=== PATIENT | male | born 1970 | race Caucasian/White ===

== ENCOUNTER 2021-05-09 09:25 | Outpatient (REF) | payer OTHER, SELFPAY ==
[2021-05-09 11:22] LABS: MANUAL DIFF FLAG NO
[2021-05-09 11:58] LABS: Basophils Percent Auto 0.7 % (0-2); Eosinophils Absolute Auto 0.2 X10*3/uL (0.0-0.4); Eosinophils Percent Auto 3.7 % (0-4); Hemoglobin 13.9 g/dl (14.0-18.0); Imm Gran Abs Auto 0.01 X10*3/uL (0.00-0.03); Imm Gran Pct Auto 0.2 % (0.0-0.4); Lymphocytes Absolute Auto 1.1 X10*3/uL (1.2-4.9); Lymphocytes Percent Auto 27.8 % (20-40); Mean Corpuscular HGB Conc 33.9 g/dl (31.0-36.0); Mean Corpuscular Hemoglobin 30.4 pg (27.0-33.0); Mean Corpuscular Volume 89.7 fL (80.0-98.0); Mean Platelet Volume 10.3 fL (9.4-12.4); Monocytes Absolute Auto 0.5 X10*3/uL (0.1-1.2); Monocytes Percent Auto 11.7 % (2-11); Neutrophils Absolute Auto 2.3 x10*3/uL (2.0-8.3); Neutrophils Percent Auto 55.9 % (45-73); Platelet Count 206 X10*3/uL (160-400); Red Blood Count 4.57 X10*6/uL (4.60-5.80); Red Cell Distribution Width 12.6 % (11.0-16.0); White Blood Count 4.1 X10*3/uL (4.8-10.8)
[2021-05-09 12:08] LABS: Anion Gap 15 (12-20); Blood Urea Nitrogen 15 mg/dL (9-16); Calcium 9.3 mg/dL (8.4-10.2); Carbon Dioxide 22 mmol/L (22-29); Chloride 106 mmol/L (96-108); Cholesterol 142 mg/dL; Estimated Glomerular Filt Rate > 60; Glucose Fasting 110 mg/dL (60-99); HDL Cholesterol 42 mg/dL; LDL Cholesterol Calculated 86 mg/dl; Potassium 3.8 mmol/L (3.3-5.1); Sodium 139 mmol/L (135-145); Triglycerides 71 mg/dL
[2021-05-09 12:10] LABS: Appearance Urine CLEAR; Color Urine DK YELLOW; Glucose Urine UA NEG (NEG); Leukocyte Esterase Urine NEG (NEG); Nitrite Urine NEG (NEG); Specific Gravity - Urine >= 1.030 (1.005-1.025); Urine Blood TRACE (NEG); Urine Ketones NEG (NEG); Urine Protein NEG (NEG-TRACE)
[2021-05-09 12:34] LABS: Prostate Specific Antigen 0.44 ng/mL (<0.05-4.0); Vitamin D 25-OH Total 37.7 ng/mL (>30)
[2021-05-09 12:38] LABS: Mucus Urine 1+ /LPF; RBC Urine 0-2 /HPF (0); WBC Urine 0 /HPF (0-4)
== END 2021-05-09 09:26 | disposition home or self-care (01) ==
LOC: HO.HMGCLDS 09:25
PROVIDERS: Visit Provider Internal Medicine
DX: Z12.5 Encounter for screening for malignant neoplasm of prostate (principal); K58.0 Irritable bowel syndrome with diarrhea; I65.23 Occlusion and stenosis of bilateral carotid arteries; D12.6 Benign neoplasm of colon, unspecified; E78.5 Hyperlipidemia, unspecified; F41.9 Anxiety disorder, unspecified; N52.9 Male erectile dysfunction, unspecified
CPT/HCPCS: 36415; 80048; 80061; 81001; 82306; 84153; 84443; 85025

== ENCOUNTER 2021-09-07 15:22 | Outpatient (REF) | payer OTHER, SELFPAY ==
--- NOTE | ~2021-09-07 | US_ITS ---
EXAMINATION: US SCROTUM CLINICAL INFORMATION: Right testicle swelling. COMPARISON: None TECHNIQUE: A sonogram of the scrotum was performed assessing alcala-scale appearance and color Doppler flow. Spectral Doppler analysis of the arterial and venous flow were performed in the testes bilaterally. FINDINGS: RIGHT: Right testicle measures 3.74 x 2.24 x 3.48 cm, volume 15.3 mL. There is a small anechoic cyst measuring 0.23 x 0.15 x 0.30 cm and 0.5 x 0.21 x 0.7 cm. There are dilated rete testes. Spectral Doppler analysis of the arterial and venous flow is normal in the right testis. Right epididymal head is normal in size. There is a moderate size hydrocele with echogenic debris within. Also visualized is a small right varicocele. There is a large cystic area within the scrotal sac measuring 3.6 x 2.4 x 3.6 cm question spermatocele. Right epididymal Doppler flow is normal. LEFT: Left testicle measures 3.71 x 2.27 x 3.44 cm, volume 15.2 mL. No focal testicular parenchymal lesions are visualized. Spectral Doppler analysis of the arterial and venous flow is normal in the left testis. Left epididymal head is heterogeneous. There is a moderate hydrocele with echogenic debris. There is a moderate-sized varicocele visualized as well. Left epididymal Doppler flow is normal. US/US scrotum IMPRESSION: Bilateral hydroceles with echogenic debris. There are bilateral varicoceles slightly larger on the left. In addition there is a right spermatocele measuring 3.6 cm. The right epididymis is normal. The left epididymis is heterogeneous. The testes are unremarkable.
== END 2021-09-07 15:23 | disposition home or self-care (01) ==
LOC: HO.HMGCX 15:22
PROVIDERS: PCP Internal Medicine; Visit Provider Internal Medicine
DX: N50.89 Other specified disorders of the male genital organs (principal); N52.9 Male erectile dysfunction, unspecified
CPT/HCPCS: 76870

== ENCOUNTER 2022-06-24 13:31 | Outpatient (REF) | payer OTHER, SELFPAY ==
[2022-06-24 15:19] LABS: MANUAL DIFF FLAG NO
[2022-06-24 15:21] LABS: Basophils Percent Auto 0.5 % (0-2); Eosinophils Absolute Auto 0.3 X10*3/uL (0.0-0.4); Eosinophils Percent Auto 3.8 % (0-4); Hematocrit 43.4 % (42.0-52.0); Hemoglobin 14.5 g/dl (14.0-18.0); Imm Gran Abs Auto 0.03 X10*3/uL (0.00-0.03); Imm Gran Pct Auto 0.4 % (0.0-0.4); Lymphocytes Absolute Auto 1.3 X10*3/uL (1.2-4.9); Lymphocytes Percent Auto 17.2 % (20-40); Mean Corpuscular HGB Conc 33.4 g/dl (31.0-36.0); Mean Corpuscular Hemoglobin 29.9 pg (27.0-33.0); Mean Corpuscular Volume 89.5 fL (80.0-98.0); Monocytes Absolute Auto 0.6 X10*3/uL (0.1-1.2); Monocytes Percent Auto 8.7 % (2-11); Neutrophils Absolute Auto 5.1 x10*3/uL (2.0-8.3); Neutrophils Percent Auto 69.4 % (45-73); Platelet Count 237 X10*3/uL (160-400); Red Blood Count 4.85 X10*6/uL (4.60-5.80); White Blood Count 7.4 X10*3/uL (4.8-10.8)
[2022-06-24 15:24] LABS: Appearance Urine Clear; Color Urine Dark Yellow; Glucose Urine UA Negative (Negative); Leukocyte Esterase Urine Negative (Negative); Nitrite Urine Negative (Negative); Specific Gravity - Urine >= 1.030 (1.005-1.025); Urine Blood Negative (Negative); Urine Ketones Negative (Negative); Urine Protein Negative (Neg-Trace)
[2022-06-24 15:29] LABS: Bacteria Urine None Seen (None Seen); Hyaline Casts Urine 0-2 /LPF (0-2); RBC Urine 0-2 /HPF (0-2); Squamous Epithelial Cell Urine 0-2 /HPF (0-2); WBC Urine 0-5 /HPF (0-5)
[2022-06-24 15:48] LABS: Alanine Aminotransferase 19 U/L (0-40); Albumin Level 4.3 g/dL (3.5-5.0); Alkaline Phosphatase 69 U/L (39-117); Anion Gap 13 (12-20); Aspartate Amino Transferase 16 U/L (5-37); Bilirubin Total 0.7 mg/dL (0.0-1.0); Blood Urea Nitrogen 16 mg/dL (9-16); Calcium 9.4 mg/dL (8.4-10.2); Carbon Dioxide 25 mmol/L (22-29); Chloride 104 mmol/L (96-108); Cholesterol 147 mg/dL; Estimated Glomerular Filt Rate > 60; Glucose Fasting 90 mg/dL (60-99); HDL Cholesterol 43 mg/dL; LDL Cholesterol Calculated 89 mg/dl; Potassium 4.2 mmol/L (3.3-5.1); Sodium 138 mmol/L (135-145); Total Protein 7.1 g/dL (6.5-8.0); Triglycerides 79 mg/dL
[2022-06-24 16:18] LABS: Thyroid Stimulating Hormone 1.08 uIU/mL (0.32-4.0)
== END 2022-06-24 13:32 | disposition home or self-care (01) ==
LOC: HO.HMGCLDS 13:31
PROVIDERS: PCP Internal Medicine; Visit Provider Internal Medicine
DX: F41.9 Anxiety disorder, unspecified (principal); I65.23 Occlusion and stenosis of bilateral carotid arteries; E78.5 Hyperlipidemia, unspecified; K58.0 Irritable bowel syndrome with diarrhea; N52.9 Male erectile dysfunction, unspecified
CPT/HCPCS: 36415; 80053; 80061; 81001; 84443; 85025

== ENCOUNTER 2023-07-27 08:01 | Outpatient (REF) | payer OTHER, SELFPAY ==
[2023-07-27 11:09] LABS: MANUAL DIFF FLAG NO
[2023-07-27 11:53] LABS: Prostate Specific Antigen 0.45 ng/mL (<0.05-4.0)
[2023-07-27 12:04] LABS: Alanine Aminotransferase 24 U/L (0-40); Alkaline Phosphatase 54 U/L (39-117); Anion Gap 11 (12-20); Aspartate Amino Transferase 18 U/L (5-37); Bilirubin Total 0.4 mg/dL (0.0-1.0); Blood Urea Nitrogen 17 mg/dL (9-16); Calcium 9.2 mg/dL (8.4-10.2); Carbon Dioxide 26 mmol/L (22-29); Chloride 107 mmol/L (96-108); Cholesterol 149 mg/dL (<200); Estimated Glomerular Filt Rate > 60; Glucose Fasting 109 mg/dL (60-99); HDL Cholesterol 49 mg/dL (>40); LDL Cholesterol Calculated 90 mg/dL (<100); Potassium 4.1 mmol/L (3.3-5.1); Sodium 140 mmol/L (135-145); Thyroid Stimulating Hormone 1.32 uIU/mL (0.32-4.0); Total Protein 7.1 g/dL (6.5-8.0); Triglycerides 50 mg/dL (<150)
[2023-07-27 12:13] LABS: Basophils Absolute Auto 0.1 X10*3/uL (0.0-0.2); Basophils Percent Auto 1.3 % (0-2); Eosinophils Absolute Auto 0.4 X10*3/uL (0.0-0.4); Eosinophils Percent Auto 8.5 % (0-4); Hematocrit 42.6 % (42.0-52.0); Hemoglobin 14.3 g/dl (14.0-18.0); Imm Gran Abs Auto 0.02 X10*3/uL (0.00-0.03); Imm Gran Pct Auto 0.4 % (0.0-0.4); Lymphocytes Percent Auto 21.1 % (20-40); Mean Corpuscular HGB Conc 33.6 g/dl (31.0-36.0); Mean Corpuscular Hemoglobin 30.2 pg (27.0-33.0); Mean Corpuscular Volume 90.1 fL (80.0-98.0); Mean Platelet Volume 10.4 fL (9.4-12.4); Monocytes Absolute Auto 0.5 X10*3/uL (0.1-1.2); Monocytes Percent Auto 11.5 % (2-11); Neutrophils Absolute Auto 2.7 x10*3/uL (2.0-8.3); Neutrophils Percent Auto 57.2 % (45-73); Platelet Count 215 X10*3/uL (160-400); Red Blood Count 4.73 X10*6/uL (4.60-5.80); Red Cell Distribution Width 11.9 % (11.0-16.0); White Blood Count 4.7 X10*3/uL (4.8-10.8)
== END 2023-07-27 08:02 | disposition home or self-care (01) ==
LOC: HO.HMGCLDS 08:01
PROVIDERS: PCP Internal Medicine; Visit Provider Internal Medicine
DX: Z00.00 Encounter for general adult medical examination without abnormal findings (principal); Z12.5 Encounter for screening for malignant neoplasm of prostate; E78.5 Hyperlipidemia, unspecified; K58.0 Irritable bowel syndrome with diarrhea
CPT/HCPCS: 36415; 80053; 80061; 84153; 84443; 85025

== ENCOUNTER 2024-07-08 07:07 | Outpatient (REF) | payer OTHER, SELFPAY ==
[2024-07-08 10:15] LABS: MANUAL DIFF FLAG NO
[2024-07-08 10:19] LABS: Basophils Absolute Auto 0.1 X10*3/uL (0.0-0.2); Basophils Percent Auto 1.2 % (0-2); Eosinophils Absolute Auto 0.3 X10*3/uL (0.0-0.4); Eosinophils Percent Auto 7.4 % (0-4); Hematocrit 41.2 % (42.0-52.0); Hemoglobin 13.7 g/dl (14.0-18.0); Imm Gran Abs Auto 0.01 X10*3/uL (0.00-0.03); Imm Gran Pct Auto 0.2 % (0.0-0.4); Lymphocytes Percent Auto 23.5 % (20-40); Mean Corpuscular HGB Conc 33.3 g/dl (31.0-36.0); Mean Corpuscular Hemoglobin 29.7 pg (27.0-33.0); Mean Corpuscular Volume 89.4 fL (80.0-98.0); Mean Platelet Volume 10.5 fL (9.4-12.4); Monocytes Absolute Auto 0.5 X10*3/uL (0.1-1.2); Monocytes Percent Auto 12.9 % (2-11); Neutrophils Absolute Auto 2.2 x10*3/uL (2.0-8.3); Neutrophils Percent Auto 54.8 % (45-73); Platelet Count 219 X10*3/uL (160-400); Red Blood Count 4.61 X10*6/uL (4.60-5.80); Red Cell Distribution Width 11.9 % (11.0-16.0)
[2024-07-08 10:49] LABS: Alanine Aminotransferase 26 U/L (0-40); Albumin Level 4.1 g/dL (3.5-5.0); Alkaline Phosphatase 53 U/L (39-117); Anion Gap 9 (12-20); Aspartate Amino Transferase 22 U/L (5-37); Bilirubin Total 0.5 mg/dL (0.0-1.0); Blood Urea Nitrogen 16 mg/dL (9-16); Calcium 8.9 mg/dL (8.4-10.2); Carbon Dioxide 25 mmol/L (22-29); Chloride 109 mmol/L (96-108); Cholesterol 125 mg/dL (<200); Estimated Glomerular Filt Rate > 60; Glucose Fasting 106 mg/dL (60-99); HDL Cholesterol 38 mg/dL (>40); LDL Cholesterol Calculated 73 mg/dL (<100); Potassium 4.1 mmol/L (3.3-5.1); Sodium 139 mmol/L (135-145); Total Protein 7.3 g/dL (6.5-8.0); Triglycerides 70 mg/dL (<150)
[2024-07-08 11:13] LABS: Thyroid Stimulating Hormone 1.65 uIU/mL (0.32-4.0); Vitamin D 25-OH Total 50.8 ng/mL (>30)
[2024-07-08 11:23] LABS: PSA,Total (Free>4and<10) 0.39 ng/mL (0.00-4.00)
== END 2024-07-08 07:08 | disposition home or self-care (01) ==
LOC: HO.HMGCLDS 07:07
PROVIDERS: PCP Internal Medicine; Visit Provider Internal Medicine
DX: E78.5 Hyperlipidemia, unspecified (principal); I65.23 Occlusion and stenosis of bilateral carotid arteries; K58.0 Irritable bowel syndrome with diarrhea; N52.9 Male erectile dysfunction, unspecified; F41.9 Anxiety disorder, unspecified; Z12.5 Encounter for screening for malignant neoplasm of prostate
CPT/HCPCS: 36415; 80053; 80061; 82306; 84153; 84443; 85025

== ENCOUNTER 2024-07-23 15:31 | Outpatient (AMB) | payer OTHER, SELFPAY ==
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
[2024-07-23 15:44] VITALS: BP 120/76; PULSE 74; TEMP 36.3; O2SAT 97; BMI 29.9
--- OUTSIDE RECORDS SUMMARY | 2024-07-23 16:21 | XMS_ITS | Patient Health Record ---
Author Organization Fabián Moncada DO, FAC Address [address] [place] [phone] Care Team Providers Care Negotiator Name Role Phone Fabián Moncada Primary Care Provider [phone] ALLERGIES No Known Allergies RESULTS Component Value Reference Range Notes Complete Blood Count Auto Di ff Reviewed date:07/27/2023 12:54:58 PM Interpretation:Abnormal Performing Lab:[facility], [address] [place] [phone] Notes/Report: White Blood Count 4.7 4.8-10.8 X10*3/uL Red Blood Count 4.73 4.60-5.80 X10*6/uL Hemoglobin 14.3 14.0-18.0 g/dl Hematocrit 42.6 42.0-52.0 % Mean Corpuscular Volume 90.1 80.0-98.0 fL Mean Corpuscular Hemoglobin 30.2 27.0-33.0 pg Mean Corpuscular HGB Conc 33.6 31.0-36.0 g/dl Red Cell Distribution Width 11.9 11.0-16.0 % Platelet Count 215 160-400 X10*3/uL Mean Platelet Volume 10.4 9.4-12.4 fL Neutrophils Percent Auto 57.2 45-73 % Imm Gran Pct Auto 0.4 0.0-0.4 % Lymphocytes Percent Auto 21.1 20-40 % Monocytes Percent Auto 11.5 2-11 % Eosinophils Percent Auto 8.5 0-4 % Basophils Percent Auto 1.3 0-2 % NRBC Pct Auto 0.0 0.0-0.2 /100WBC Neutrophils Absolute Auto 2.7 2.0-8.3 x10*3/u L Imm Gran Abs Auto 0.02 0.00-0.03 X10*3/uL Lymphocytes Absolute Auto 1.0 1.2-4.9 X10*3/u L Monocytes Absolute Auto 0.5 0.1-1.2 X10*3/uL Eosinophils Absolute Auto 0.4 0.0-0.4 X10*3/u L Basophils Absolute Auto 0.1 0.0-0.2 X10*3/uL NRBC Abs Auto 0.000 0.0-0.012 X10*3/uL Comprehensive [place]. Panel Fa Reviewed date:07/27/2023 12:54:35 PM Interpretation:Abnormal Performing Lab:[facility], [address] [place] [phone] Notes/Report: Sodium 140 135-145 mmol/L Potassium 4.1 3.3-5.1 mmol/L Chloride 107 96-108 mmol/L Carbon Dioxide 26 22-29 mmol/L Anion Gap 11 12-20 Blood Urea Nitrogen 17 9-16 mg/dL Creatinine 0.88 0.5-1.4 mg/dL Estimated Glomerular Filt Rate > 60 NOTE: For -[place] individuals, multiply the result by 1.210. Chronic Kidney Disease: Estimated GFR < 60 mL/min/1.73m2 Severe Kidney Disease: Estimated GFR < 15 mL/min/1.73m2 Glucose Fasting 109 60-99 mg/dL A fasting glucose from 100-125 mg/dl is considered impaired (pre-diabetes). Calcium 9.2 8.4-10.2 mg/dL Bilirubin Total 0.4 0.0-1.0 mg/dL Aspartate Amino Transferase 18 5-37 U/L Alanine Aminotransferase 24 0-40 U/L Total Protein 7.1 6.5-8.0 g/dL Albumin Level 4.0 3.5-5.0 g/dL Alkaline Phosphatase 54 39-117 U/L Lipid Panel Reviewed date:07/27/2023 12:54:35 PM Interpretation:Normal Performing Lab:[facility], [address] [place] [phone] Notes/Report: Triglycerides 50 <150 mg/dL Desirable Triglyceride: less than 150 mg/dL Borderline High Triglyceride 150-199 mg/dL High Triglyceride: 200-499 mg/dL Very High Triglyceride: greater than or equal to 5OO mg/dL Cholesterol 149 <200 mg/dL Desirable Cholesterol: less than 200 mg/dL Borderline High Cholesterol: 200-239 mg/dL High Cholesterol: greater than 239 mg/dL LDL Cholesterol Calculated 90 <100 mg/dL Desirable LDL: less than 100 mg/dL Near Optimal/Above Optimal LDL: 110-129 mg/dL Borderline High LDL: 130-159 mg/dL High LDL: 160-189 mg/dL Very High LDL: greater than or equal to 190 mg/dL HDL Cholesterol 49 >40 mg/dL Desirable HDL: greater than 40 mg/dL Note: This HDL assay may give artificially low results in patients with liver disease. Prostate Specific Antigen Reviewed date:07/27/2023 12:54:35 PM Interpretation:Normal Performing Lab:[facility], [address] [place] [phone] Notes/Report: Prostate Specific Antigen 0.45 <0.05-4.0 ng/mL PSA methodology: [employer] i Chemiluminescent Microparticle Immunoassay (CMIA) Thyroid Stimulating Hormone Reviewed date:07/27/2023 12:54:35 PM Interpretation:Normal Performing Lab:[facility], [address] [place] [phone] Notes/Report: Thyroid Stimulating Hormone 1.32 0.32-4.0 uIU/ mL TSH 3rd Generation ([employer]) REASON FOR REFERRAL No Information MEDICATIONS Medication SIG (Take, Route, Frequency, Duration) Notes Start Date End Date Status Aspirin Adult Low Dose 81 MG 1 tablet Orally Once a day Active Sildenafil Citrate 100 MG 1 tablet as ne eded Orally Once a day Active Atorvastatin Calcium 20 MG 1 tablet Oral ly Once a day Active IMMUNIZATIONS Vaccine Route Administration Date Status Comme nts TDaP Unknown 02/06/2013 Administered Influenza Quad IM Intramuscular 05/04/2021 Administered Influenza Quad Unknown 04/01/2018 Administered COVID-19 Moderna Vaccine Unknown 07/16/2020 Administere d Influenza Unknown 07/29/2008 Administered Td (adult) Unknown 02/14/2006 Administered COVID-19 Moderna Vaccine Unknown 06/17/2020 Administere d COVID-19 Moderna Vaccine Unknown 07/07/2021 Administere d SOCIAL HISTORY Tobacco Use: Social History Observation Description Date Details (start date - stop date) Former Smoker NA - NA Sex Assigned At : Social History Observation Description Sex Assigned At Unknown Tobacco Use/Smoking Question Answer Notes Patient is a former smoker How long has it been since y ou last smoked? > 10 years Additional Findings: Tobacco Non-User Cu rrent non-smoker, currently using no form of tobacco Alcohol Screen Question Answer Notes Did you have a drink contain ing alcohol in the past year? Yes How often did you have a dri nk containing alcohol in the past year? 2 to 4 times a month (2 points) How many drinks did you have on a typical day when you were drinking in the past year? 1 or 2 drinks (0 point) How often did you have 6 or more drinks on one occasion in the past year? Never (0 point) Points 2 Interpretation Negative PROBLEMS Problem Type ICD Code Onset Dates Problem Status W/U Status Risk SNOMED Code Notes Problem Irritable bowel syndrome with diarrhea (K58.0) Active confirmed 351661380 Problem Bilateral carotid artery stenosis (I65.23) Active confirmed 365257580 Problem Hyperlipidemia, unspecified hyperlipidemia type (E78.5) Active confirmed 99248311 Problem Anxiety (F41.9) Active confirmed 385341 02 Problem Erectile dysfunction, unspecified erectile dysfunction type (N52.9) Active confirmed 158805694 Problem Seasonal allergies (J30.2) Active confirmed 302126519 VITAL SIGNS Blood pressure diastolic 70 mm Hg 01/16/2024 Height 70.5 in 01/16/2024 Blood pressure systolic 124 mm Hg 01/16/2024 Weight 204 lbs 01/16/2024 BMI 28.85 kg/m2 01/16/2024 Encounters Encounter Location Date Provider Diagnosis Fabián Moncada DO, [address] [id number] 08/08/2023 Fabián Moncada DO, [address] [id number] 09/11/2023 Fabián Moncada Encounter for [facility] adult medical examination without abnormal findings Z00.00 ; Hyperlipidemia, unspecified hyperlipidemia type E78.5 ; Bilateral carotid artery stenosis I65.23 ; Anxiety F41.9 ; Irritable bowel syndrome with diarrhea K58.0 and Erectile dysfunction, unspecified erectile dysfunction type N52.9 Fabián Moncada DO, [address] [id number] 01/16/2024 Fabián Moncada Anxiety F41.9 ; Bilateral carotid artery stenosis I65.23 ; Hyperlipidemia, unspecified hyperlipidemia type E78.5 ; Irritable bowel syndrome with diarrhea K58.0 and Erectile dysfunction, unspecified erectile dysfunction type N52.9 Fabián Moncada DO, [address] [id number] 07/23/2024 Fabián Moncada Fabián Moncada DO, [address] [id number] 08/08/2023 Fabián Moncada Fabián Moncada DO, [address] [id number] 01/02/2024 Fabián Moncada Fabián Moncada DO, [address] [id number] 02/08/2024 Fabián Moncada Anxiety F41.9 Fabián Moncada DO, [address] [id number] 03/11/2024 Fabián Coral Fabián Moncada DO, [address] [id number] 02/15/2024 Fabián Moncada Anxiety F41.9 ; Irritable bowel syndrome with diarrhea K58.0 ; Hyperlipidemia, unspecified hyperlipidemia type E78.5 ; Bilateral carotid artery stenosis I65.23 and Erectile dysfunction, unspecified erectile dysfunction type N52.9 Fabián Moncada DO, [address] [id number] 04/18/2024 Fabián Coral Fabián Moncada DO, [address] [id number] 05/23/2024 Fabián Moncada Hyperlipidemia, unspecified hyperlipidemia type E78.5 ; Bilateral carotid artery stenosis I65.23 ; Irritable bowel syndrome with diarrhea K58.0 ; Erectile dysfunction, unspecified erectile dysfunction type N52.9 and Anxiety F41.9 ASSESSMENTS Encounter Date Diagnosis Assessment Notes Treatment Notes Treatment Clinical Notes 09/11/[address] [facility] adult medical examination without abnormal findings (ICD-10 - Z00.00) Exercise, diet, portion control, weight loss. Advise 15 pound weight loss 09/11/2023 Hyperlipidemia, unspecified hyperlipidemia type (ICD-10 - E78.5) 01/16/2024 Anxiety (ICD-10 - F41.9) 01/16/2024 Bilateral carotid artery stenosis (ICD-10 - I65.23) 02/08/2024 Anxiety (ICD-10 - F41.9) 02/15/2024 Irritable bowel syndrome with diarrhea (ICD-10 - K58.0) 02/15/2024 Anxiety (ICD-10 - F41.9) 05/23/2024 Hyperlipidemia, unspecified hyperlipidemia type (ICD-10 - E78.5) 05/23/2024 Bilateral carotid artery stenosis (ICD-10 - I65.23) 09/11/2023 Bilateral carotid artery stenosis (ICD-10 - I65.23) 01/16/2024 Hyperlipidemia, unspecified hyperlipidemia type (ICD-10 - E78.5) 02/15/2024 Hyperlipidemia, unspecified hyperlipidemia type (ICD-10 - E78.5) 05/23/2024 Irritable bowel syndrome with diarrhea (ICD-10 - K58.0) 09/11/2023 Anxiety (ICD-10 - F41.9) 01/16/2024 Irritable bowel syndrome with diarrhea (ICD-10 - K58.0) 02/15/2024 Bilateral carotid artery stenosis (ICD-10 - I65.23) 05/23/2024 Erectile dysfunction , unspecified erectile dysfunction type (ICD-10 - N52.9) 09/11/2023 Irritable bowel syndrome with diarrhea (ICD-10 - K58.0) 01/16/2024 Erectile dysfunction , unspecified erectile dysfunction type (ICD-10 - N52.9) 02/15/2024 Erectile dysfunction , unspecified erectile dysfunction type (ICD-10 - N52.9) 05/23/2024 Anxiety (ICD-10 - F41.9) 09/11/2023 Erectile dysfunction , unspecified erectile dysfunction type (ICD-10 - N52.9) PLAN OF TREATMENT Pending Test Test Name Order Date CBC w DIFF 05/23/2024 LIPOPROTEIN FRACTIONATION (LIPID PANEL) 05/23/2024 PROFILE, FASTING 05/23/2024 TSH (THYROID STIMULATING HORMONE) 2023 VITAMIN D 25-OH TOTAL 05/23/2024 PSA,Total (Free>4and<10) 05/23/2024 Insurance Providers Payer Name Payer Address Payer Phone Subscriber Number Group Number Insured Name Patient Relationship to Insured Coverage Start Date Coverage End Date [facility] [id number] [place] [phone] [id number] Mike Avalos Self - patient is the insured MEDICAL (GENERAL) HISTORY Medical History History ICD Code irritable bowel syndrome hyperlipidemia obstructive sleep apnea on nightly CPAP vertigo carotid artery stenosis, bilateral varicose veins anemia low back pain degenerative disc disease, thoracic depression headache allergic rhinitis Anxiety F41.9 Surgical History Surgery Date(Month/Year) herniorraphy, right inguinal vasectomy hydrocele repair wisdom teeth extraction
--- OUTSIDE RECORDS SUMMARY | 2024-07-23 16:21 | XMS_ITS ---
Author Organization Fabián Moncada DO [facility] Address [address], [place] [id number] Care Team Providers Care Diesel Inspector Name Role Phone Fabián Moncada Primary Care Provider REASON FOR VISIT 2 month f/u MEDICATIONS Medication SIG (Take, Route, Frequency, Duration) Notes Start Date End Date Status Sildenafil Citrate 100 MG 1 tablet as ne eded Orally Once a day Active buPROPion HCl ER (XL) 150 MG 1 tablet in the morning Orally Once a day 01/16/2024 Active Atorvastatin Calcium 20 MG 1 tablet Oral ly Once a day Active Aspirin Adult Low Dose 81 MG 1 tablet Orally Once a day Active Hyoscyamine Sulfate ER 0.375 MG 1 tablet as needed Orally Once a day Active Encounters Encounter Location Date Provider Diagnosis Fabián Moncada DO, FACP [address] [place] [id number] 04/18/2024 Fabián Moncada PLAN OF TREATMENT No Information
--- OUTSIDE RECORDS SUMMARY | 2024-07-23 16:21 | XMS_ITS ---
Author Organization Fabián Moncada DO, [facility] Address [address], [place] [id number] Care Team Providers Care Systems Developer Name Role Phone Fabián Moncada Primary Care Provider ALLERGIES No Known Allergies REASON FOR VISIT Follow up irritable bowel syndrome, Anxiety MEDICATIONS Medication SIG (Take, Route, Frequency, Duration) Notes Start Date End Date Status Aspirin Adult Low Dose 81 MG 1 tablet Orally Once a day Active Sildenafil Citrate 100 MG 1 tablet as ne eded Orally Once a day Active Atorvastatin Calcium 20 MG 1 tablet Oral ly Once a day Active SOCIAL HISTORY Tobacco Use: Social History Observation [...] Never (0 point) Points 2 Interpretation Negative Encounters Encounter Location Date Provider Diagnosis Fabián Moncada DO, [facility] [address], [place] [id number] 05/23/2024 Fabián Moncada Hyperlipidemia, unspecified hyperlipidemia type E78.5 ; Bilateral carotid artery stenosis I65.23 ; Irritable bowel syndrome with diarrhea K58.0 ; Erectile dysfunction, unspecified erectile dysfunction type N52.9 and Anxiety F41.9 ASSESSMENTS Encounter Date Diagnosis Assessment Notes Treatment Notes Treatment Clinical Notes 05/23/2024 Hyperlipidemia, unspecified hyperlipidemia type (ICD-10 - E78.5) 05/23/2024 Bilateral carotid artery stenosis (ICD-10 - I65.23) 05/23/2024 Irritable bowel syndrome with diarrhea (ICD-10 - K58.0) 05/23/2024 Erectile dysfunction , unspecified erectile dysfunction type (ICD-10 - N52.9) 05/23/2024 Anxiety (ICD-10 - F41.9) PLAN OF TREATMENT Medication Medication Name Sig Start Date Stop Date Notes Aspirin Adult Low Dose 81 MG 1 tablet Orally Once a day Sildenafil Citrate 100 MG 1 tablet as ne eded Orally Once a day Atorvastatin Calcium 20 MG 1 tablet Orally Once a day Pending Test Test Name Order Date CBC w DIFF 05/23/2024 LIPOPROTEIN FRACTIONATION (LIPID PANEL) 05/23/2024 PROFILE, FASTING 05/23/2024 TSH (THYROID STIMULATING HORMONE) 2023 VITAMIN D 25-OH TOTAL 05/23/2024 PSA,Total (Free>4and<10) 05/23/2024 Next Appt Details Follow Up: 2 Months, Reason: follow up visit,review lab work Progress Notes * Examination Category Sub-Category Detail Notes General Examination GENERAL APPEARANCE: in no ac [place] distress, well developed, well nourished LUNGS: breathing comfortabl y at rest PSYCH: alert, oriented, cog nitive function intact History and Physical Notes * HPI (History of Present Illness) Category Sub-Category Detail Notes New symptom(s) Telehealth Location of provider:: Pro vor's home address Location of patient:: Address listed in demographics for today's visit Patient identification confirmed using:: Name, Telehealth method:: Video co nference where patient is visible to the provider of care Consent:: Patient verbally c onsented to treatment, Patient verbally consented to billing insurance company, Patient informed of any privacy concerns related to method of visit Total time spent with patient (mins): 23 Disclaimer: This Telehealth visit is being conducted per CDC recommendations due to the COVID-19 outbreak.
--- OUTSIDE RECORDS SUMMARY | 2024-07-23 16:22 | XMS_ITS ---
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
== END 2024-07-23 16:23 | disposition home or self-care (01) ==
LOC: HO.HMCSH 15:31
PROVIDERS: PCP Internal Medicine; Visit Provider Physician Assistant Medical
DX: D22.9 Melanocytic nevi, unspecified (principal); F41.9 Anxiety disorder, unspecified; N52.9 Male erectile dysfunction, unspecified; F32.A Depression, unspecified; M51.34 Other intervertebral disc degeneration, thoracic region; M54.50 Low back pain, unspecified; G89.29 Other chronic pain; I65.23 Occlusion and stenosis of bilateral carotid arteries; G47.33 Obstructive sleep apnea (adult) (pediatric); E78.5 Hyperlipidemia, unspecified; K58.9 Irritable bowel syndrome, unspecified

== ENCOUNTER → 2024-07-23 15:31 | Outpatient (BNVA) | payer OTHER, SELFPAY | PROVIDERS: PCP Internal Medicine; Visit Provider Physician Assistant Medical ==

== ENCOUNTER 2024-09-17 15:21 | Outpatient (REF) | payer OTHER, SELFPAY ==
--- NOTE | ~2024-09-17 | XR_ITS ---
EXAMINATION: X-RAY LUMBAR SPINE 4 VIEWS. CLINICAL INFORMATION: Dorsalgia, unspecified. TECHNIQUE: 3 views lumbar spine COMPARISON: None FINDINGS: Rudimentary ribs at T12. Marginal osteophyte formation, endplate sclerosis and decreased intervertebral disc height in the lower thoracic and upper lumbar spine. Grade 1 retrolisthesis at L2-3. Syndesmophyte formation at L1-2. No acute cortical disruption. No lytic or blastic lesions. XR/XR lumbar spine 4V min IMPRESSION: Multilevel thoracolumbar spondylosis. Grade 1 retrolisthesis L2-3 likely degenerative. Electronically signed by: Darrion Owusu MD 09/18/2024 08:14 AM EDT
--- NOTE | ~2024-09-17 | XR_ITS ---
EXAMINATION: XR THORACIC SPINE CLINICAL INFORMATION: M54.9 - Dorsalgia, unspecified COMPARISON: None available. TECHNIQUE: 3 views of the thoracic spine were obtained. FINDINGS: S-shaped curvature of the thoracolumbar spine. Multilevel endplate sclerosis and marginal osteophyte formation more conspicuous in the lower segment and upper lumbar spine region. No acute cortical disruption or malalignment. No lytic or blastic lesions. XR/XR thoracic spine 3V IMPRESSION: Scoliosis, mild to moderate and multilevel spondylosis. Electronically signed by: Darrion Owusu MD 09/18/2024 08:25 AM EDT
== END 2024-09-17 15:22 | disposition home or self-care (01) ==
LOC: HO.HMGCX 15:21
PROVIDERS: PCP Internal Medicine; Visit Provider Physician Assistant Medical
DX: M54.9 Dorsalgia, unspecified (principal)
CPT/HCPCS: 72072; 72110

== ENCOUNTER → 2024-09-17 15:24 | Outpatient (BNV) | payer OTHER, SELFPAY | PROVIDERS: PCP Internal Medicine; Visit Provider Radiology Diagnostic Radiology | DX: M47.815 Spondylosis without myelopathy or radiculopathy, thoracolumbar region (principal); M47.814 Spondylosis without myelopathy or radiculopathy, thoracic region | CPT/HCPCS: 72072; 72110 ==

== ENCOUNTER 2024-10-10 16:36 | Outpatient (AMB) | payer OTHER, SELFPAY ==
--- NOTE | 2024-10-10 16:15 | MHC.PC.OV ---
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: No Allergies No Known Allergies Allergy (Verified 10/10/24 17:02) Medication List - Last Reconciled 10/10/24 by Shaneka Benavides PA-C aspirin (Adult Aspirin Regimen) 81 mg PO DAILY atorvastatin 20 mg PO BEDTIME cyclobenzaprine 10 mg PO Q8H hydroxyzine HCl 25 mg PO Q8H PRN naproxen 500 mg PO BID 30 days sildenafil 100 mg PO DAILY Tobacco use date assessed: 10/10/24 Dental Screening Dental Screen Date: 10/10/24 Did you have a dental visit in the last 12 months?: Yes Did you have a dental problem in the last 6 months where you did not have access to dental care?: No Was dental information given to patient?: Patient has dentist HPI persistent anxiety HPI Details The patient is a 54-year-old male presenting with anxiety and depression management. The patient has previously been treated with various medications for anxiety, including bupropion, hydroxyzine, and fluoxetine, with noted initial improvement followed by diminishing effects. Recently, the patient self-discontinued his medication due to feeling mentally clouded and increased anxiety, particularly in his work environment at a [employer], which has become more anxiety-provoking. The patient has ceased to feel motivated for activities he previously enjoyed, such as outdoor recreational activities, and reported a general sense of depression without suicidal ideation. Relationship changes, including the end of a long-term partnership, do not appear to significantly impact his current emotional well-being. He also reports a newly impaired interest in social activities despite no reported hallucinations or self-harming thoughts. His obsessive compulsive tendencies to have things in order persist though he lacks motivation in other areas. [facility] Medical History Back pain Numerous moles Anxiety disorder Erectile dysfunction Anxiety Allergic rhinitis Headache Depression Thoracic degenerative disc disease Chronic low back pain Anemia Varicose vein of leg Bilateral carotid artery stenosis Vertigo Obstructive sleep apnea on CPAP Hyperlipidemia IBS (irritable bowel syndrome) Surgical History History of colonoscopy (~09/17/21) Family History Father Back problem Cancer Mother Knee problem Social History Housing: House Patient Tobacco Use Status: Former Tobacco user service: No Current occupational status: employed Cognitive needs: No Hearing needs: No Vision needs: Yes (rx glasses) Questionnaire PHQ-9 Over the last 2 weeks, how often have you been bothered by any of the following problems? 1. Little interest or pleasure in doing things: several days 2. Feeling down, depressed, or hopeless: several days 3. Trouble falling or staying asleep, or sleeping too much: several days 4. Feeling tired or having little energy: nearly every day 5. Poor appetite or overeating: not at all 6. Feeling bad about yourself - or that you are a failure or have let yourself or your family down: not at all 7. Trouble concentrating on things, such as reading the newspaper or watching television: several days 8. Moving or speaking so slowly that other people could have noticed. Or the opposite - being so fidgety or restless that you have been moving around a lot more than usual: not at all 9. Thoughts that you would be better off or of hurting yourself in some way: not at all Total score: 7 Depression Screening Interpretation: Positive Depression Screening Follow-up: Existing condition Depression Screening Done: Yes 65963 - PHQ-9 Billing: Yes Source: Developed by Drs. Fabián Mccoy, Ele Avendaño, Nathanael Posada and colleagues, with an educational roberto from [employer]. Thrive Questionnaire Date Thrive assessed: 10/10/24 I am a: Patient What is your living situation today?: I have a steady place to live Within the past 12 months, did the food you bought not last and you didn't have the money to get more?: Never true Within the past 12 months, did you worry whether your food would run out before you got money to buy more?: Never true Do you have trouble paying for medicines?: No Do you have trouble getting transportation to medical appointments?: No Do you have trouble paying your heating and electricity bill?: No Do you have trouble taking care of your child, family member or friend?: No Do you have trouble with day-to-day activities such as bathing, preparing meals, shopping, managing finances, etc.?: No Are you currently unemployed and looking for a job?: No Are you interested in more education?: No Please select the resources that you would like help with: None THRIVE Score: 0 AUDIT C Alcohol Use Questionnaire (AUDIT-C) 1. How often do you have a drink containing alcohol?: 2-3 times a week 2. How many drinks containing alcohol do you have on a typical day when you are drinking?: 1 or 2 3. How often do you have six or more drinks on one occasion?: Never Total Score: 3 Score Reviewed/Action Taken: Yes NEDA-7 AMB Questionnaire NEDA-7 Date NEDA - 7 assessed: 10/10/24 Feeling nervous, anxious, or on edge: 3 = Nearly every day Not being able to stop or control worryin = Several days Worrying too much about different things: 1 = Several days Trouble relaxin = Not at all Being so restless that it is hard to sit still: 0 = Not at all Becoming easily annoyed or irritable: 0 = Not at all Feeling afraid as if something awful might happen: 0 = Not at all Total NEDA-7 score (0-4 normal; 5-9 mild; 10-14 moderate; 15-21 severe): 5 Source: Developed by Drs. Fabián Mccoy, Ele Avendaño, Nathanael Posada and colleagues, with an educational roberto from [employer]. NEDA-7 Assessment Billing NEDA-7 Assessment Tool: NEDA-7 Assessment 32248 Review of Systems Const Details: - Psychiatric: Reports anxiety, depression, lack of motivation. Denies hallucinations, delusions, suicidal ideation. - Neurological: Denies significant headaches, dizziness; reports sporadic imbalance. - Endocrine: Denies recent changes in weight or appetite. Physical exam (Primary Care) Tobacco/Smoking Status: Tobacco use Status Tobacco use date assessed 10/10/24 10/10/24 16:29 Patient Tobacco Use Status Former Tobacco user 10/10/24 16:29 PHQ-9: PHQ-9 Score PHQ-9: Total score 7 10/10/24 16:29 Depression Screening Interpretation: Positive Depression Screening Follow-up: Existing condition Thrive Assessment: Date of Thrive Assessment Date Thrive assessed 10/10/24 10/10/24 16:29 Telehealth Telehealth Telehealth Platform: [employer] Location of provider rendering services: practice address Location of patient: address on file Patient Identification confirmed using: Name, : Yes Telehealth method: voice only Patient verbally consented to treatment: Yes Patient verbally consented to billing insurance company: Yes Patient informed of any privacy concerns related to visit: Yes Minutes spent on Phone/Video with Pt.: 25 Coding Level of Care Code Tele New Pt Level 4 (47644) Complex EM visit Add On G2211 Diagnoses Depression F32.A Anxiety disorder F41.9 Additional Codes PHQ-9 - 50176 - PHQ-9 Billing: Yes ([id number]) NEDA-7 Assessment Billing - NEDA-7 Assessment Tool: NEDA-7 Assessment 75203 ([id number]) Time Spent (min) 25 Assessment & Plan Assessment & Plan (1) Depression: Code(s): F32.A - Depression, unspecified Category: Medical Plan: The patient?s depressive symptoms, characterized by decreased interest in activities and motivation, will be further evaluated by a mental health specialist. Therapy sessions with a focus on cognitive-behavioral techniques are planned. The patient will pursue the recommended psychiatric referral to assess and consider adjusting his therapeutic regimen and to engage in activities promoting mood improvement. Condition is chronic although patient feels like it is worsening therefore will refer and start patient on Atarax. Patient will follow-up in 2 weeks. (2) Anxiety disorder: Code(s): F41.9 - Anxiety disorder, unspecified Category: Medical Plan: A referral will be made to a psychiatrist to evaluate the patient's long-standing anxiety and its resistance to prior pharmacotherapy. Hydroxyzine 25 mg as needed is prescribed to manage acute anxiety symptoms. The patient will be encouraged to participate in social activities, as well as pursue consistent physical exercise, to mitigate symptoms. We also plan to assess the patient?s testosterone levels to rule out hormonal contributors to his fatigue. Condition is chronic and patient feels like it is worsening therefore will refer and start patient on Atarax. Patient to follow-up in 2 weeks. Plan Plan Patient was informed and verbally consented to the use of an ambient scribe for clinic note documentation during this visit. 1. Generalized Anxiety Disorder A referral will be made to a psychiatrist to evaluate the patient's long-standing anxiety and its resistance to prior pharmacotherapy. Hydroxyzine 25 mg as needed is prescribed to manage acute anxiety symptoms. The patient will be encouraged to participate in social activities, as well as pursue consistent physical exercise, to mitigate symptoms. We also plan to assess the patient?s testosterone levels to rule out hormonal contributors to his fatigue. 2. Depression The patient?s depressive symptoms, characterized by decreased interest in activities and motivation, will be further evaluated by a mental health specialist. Therapy sessions with a focus on cognitive-behavioral techniques are planned. The patient will pursue the recommended psychiatric referral to assess and consider adjusting his therapeutic regimen and to engage in activities promoting mood improvement. During the visit, I discussed with the patient the likelihood that his symptoms stem from chronic anxiety and depression. We reviewed prior medication attempts, their limited efficacy, and explored non-pharmacological strategies to enhance his mental health. I provided detailed information regarding the use of hydroxyzine as an as-needed medication to manage acute symptoms of anxiety, highlighting the potential sedative effects if taken frequently. I emphasized the importance of social engagement and routine exercise in alleviating his symptoms. I explained the referral process to mental health professionals, including the referral to [facility] for psychotherapy and medication evaluation, and clarified the options and rationale behind this choice. Patient denied any SI or HI or any auditory or visual hallucination or thoughts of self-injury at this time. Orders: Orders Testosterone, Total Today Z00.00 - Encounter for general adult medical examination without abnormal findings DHEA Sulfate Today Z00.00 - Encounter for general adult medical examination without abnormal findings Dihydrotestosterone Today Z00.00 - Encounter for general adult medical examination without abnormal findings Vitamin B12 and Folate Today Z00.00 - Encounter for general adult medical examination without abnormal findings Referrals Psychiatry Referral F32.A - Depression, unspecified, F41.9 - Anxiety disorder, unspecified Psychiatry Outpatient Consultation Service F32.A - Depression, unspecified, F41.9 - Anxiety disorder, unspecified Counseling Referral F32.A - Depression, unspecified, F41.9 - Anxiety disorder, unspecified Medications: New hydroxyzine HCl 25 mg PO Q8H PRN 30 tabs 0RF anxiety Patient Instructions: - Take hydroxyzine 25 mg as needed for anxiety, but be cautious if you need to work or drive. - Follow through with the referral to mental health services for further evaluation and therapy. - Engage in physical activities and social interactions regularly. - Have your testosterone levels checked to investigate potential hormonal effects on your energy levels. - Follow up with any scheduled appointments or referrals to address your mental health needs. - Return to the clinic or contact us if symptoms worsen or if there are new symptoms such as hopelessness or thoughts of self-harm.
== END 2024-10-10 17:15 | disposition home or self-care (01) ==
LOC: HO.HMCSH 16:36
PROVIDERS: PCP Internal Medicine; Visit Provider Physician Assistant Medical
DX: F32.A Depression, unspecified (principal); F41.9 Anxiety disorder, unspecified

== ENCOUNTER → 2024-10-10 16:36 | Outpatient (BNVA) | payer OTHER, SELFPAY | PROVIDERS: PCP Internal Medicine; Visit Provider Physician Assistant Medical | DX: F32.A Depression, unspecified (principal); F41.9 Anxiety disorder, unspecified | CPT/HCPCS: 96127 ==

== ENCOUNTER 2024-10-23 15:22 | Outpatient (REF) | payer OTHER, SELFPAY ==
[2024-10-23 17:32] LABS: Vitamin B12 385 pg/mL (200-900)
[2024-10-24 04:54] LABS: DHEA Sulfate 24 mcg/dL (32-279)
[2024-10-27 18:22] LABS: Testosterone, Total 248 ng/dL (250-1100)
[2024-10-28 22:48] LABS: Dihydrotestosterone 28 ng/dL (12-65)
== END 2024-10-23 15:23 | disposition home or self-care (01) ==
LOC: HO.HMGCLDS 15:22
PROVIDERS: PCP Internal Medicine; Visit Provider Physician Assistant Medical
DX: Z00.00 Encounter for general adult medical examination without abnormal findings (principal)
CPT/HCPCS: 36415; 82607; 82627; 82642; 82746; 84403

== ENCOUNTER 2024-10-24 15:49 | Outpatient (AMB) | payer OTHER, SELFPAY ==
--- NOTE | 2024-10-24 15:43 | A.OFFPC_ITS ---
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 He reports ongoing anxiety with fluctuations in severity, describing some days as particularly challenging. Fatigue is reported as significant, with a correlation to anxiety and possible hormonal issues. Despite prior benefits of medications like Lexapro, he experienced a relapse of symptoms over time. Additionally, the patient experiences exacerbated anxiety with the use of energy drinks. Hydroxyzine, used for anxiety, was found to excessively sedate the patient. Chronic back pain is described, triggered by physical activity. Although not debilitating daily, it impairs his ability to perform strenuous housework. Low DHEA sulfate levels have been detected, warranting urology vs endocrinology evaluation due to their potential impact on fatigue and motivation. Pending testosterone results will further clarify these hormonal concerns. [facility] Medical History (Updated 10/24/24 @ 17:04 by Shaneka Benavides PA-C) Hypogonadism male Chronic back pain Low testosterone Back pain Numerous moles Anxiety disorder Erectile dysfunction Anxiety Allergic rhinitis Headache Depression Thoracic degenerative disc disease Chronic low back pain Anemia Varicose vein of leg Bilateral carotid artery stenosis Vertigo Obstructive sleep apnea on CPAP Hyperlipidemia IBS (irritable bowel syndrome) Surgical History History of colonoscopy (~09/17/21) Family History Father Back problem Cancer Mother Knee problem Social History Housing: House Alcohol intake: current Alcohol intake frequency: a few times a week Patient Tobacco Use Status: Former Tobacco user service: No Current occupational status: employed Cognitive needs: No Hearing needs: No Vision needs: Yes (rx glasses) Questionnaire PHQ-9 Over the last 2 weeks, how often have you been bothered by any of the following problems? 1. Little interest or pleasure in doing things: several days 2. Feeling down, depressed, or hopeless: several days 3. Trouble falling or staying asleep, or sleeping too much: several days 4. Feeling tired or having little energy: nearly every day 5. Poor appetite or overeating: not at all 6. Feeling bad about yourself - or that you are a failure or have let yourself or your family down: not at all 7. Trouble concentrating on things, such as reading the newspaper or watching television: several days 8. Moving or speaking so slowly that other people could have noticed. Or the opposite - being so fidgety or restless that you have been moving around a lot more than usual: not at all 9. Thoughts that you would be better off or of hurting yourself in some way: not at all Total score: 7 Depression Screening Interpretation: Positive Depression Screening Follow-up: Existing condition Depression Screening Done: Yes 23385 - PHQ-9 Billing: Yes Source: Developed by Drs. Fabián Mccoy, Ele Avendaño, Nathanael Posada and colleagues, with an educational roberto from [employer]. Thrive Questionnaire Date Thrive assessed: 10/10/24 I am a: Patient What is your living situation today?: I have a steady place to live Within the past 12 months, did the food you bought not last and you didn't have the money to get more?: Never true Within the past 12 months, did you worry whether your food would run out before you got money to buy more?: Never true Do you have trouble paying for medicines?: No Do you have trouble getting transportation to medical appointments?: No Do you have trouble paying your heating and electricity bill?: No Do you have trouble taking care of your child, family member or friend?: No Do you have trouble with day-to-day activities such as bathing, preparing meals, shopping, managing finances, etc.?: No Are you currently unemployed and looking for a job?: No Are you interested in more education?: No Please select the resources that you would like help with: None THRIVE Score: 0 AUDIT C Alcohol Use Questionnaire (AUDIT-C) 1. How often do you have a drink containing alcohol?: 2-3 times a week 2. How many drinks containing alcohol do you have on a typical day when you are drinking?: 1 or 2 3. How often do you have six or more drinks on one occasion?: Never Total Score: 3 Score Reviewed/Action Taken: Yes NEDA-7 AMB Questionnaire NEDA-7 Date NEDA - 7 assessed: 10/10/24 Feeling nervous, anxious, or on edge: 3 = Nearly every day Not being able to stop or control worryin = Several days Worrying too much about different things: 1 = Several days Trouble relaxin = Not at all Being so restless that it is hard to sit still: 0 = Not at all Becoming easily annoyed or irritable: 0 = Not at all Feeling afraid as if something awful might happen: 0 = Not at all Total NEDA-7 score (0-4 normal; 5-9 mild; 10-14 moderate; 15-21 severe): 5 Source: Developed by Drs. Fabián Mccoy, Ele Avendaño, Nathanael Posada and colleagues, with an educational roberto from [employer]. NEDA-7 Assessment Billing NEDA-7 Assessment Tool: NEDA-7 Assessment 12956 Review of Systems Const Details: - General: Reports fatigue, denies fever. - Psychiatric: Reports anxiety, denies depression. - Musculoskeletal: Reports back pain. - Endocrine: Reports fatigue potentially related to low testosterone levels. - Hematology: Denies bleeding or bruising. Physical exam (Primary Care) Tobacco/Smoking Status: Tobacco use Status Tobacco use date assessed 10/24/24 10/24/24 15:49 Patient Tobacco Use Status Former Tobacco user 10/24/24 15:49 PHQ-9: PHQ-9 Score PHQ-9: Total score 7 10/24/24 15:49 Depression Screening Interpretation: Positive Depression Screening Follow-up: Existing condition Thrive Assessment: Date of Thrive Assessment Date Thrive assessed 10/10/24 10/24/24 15:49 Telehealth Telehealth Telehealth Platform: Telephone Location of provider rendering services: practice address Location of patient: address on file Patient Identification confirmed using: Name, : Yes Telehealth method: voice only Patient verbally consented to treatment: Yes Patient verbally consented to billing insurance company: Yes Patient informed of any privacy concerns related to visit: Yes Minutes spent on Phone/Video with Pt.: 20 Coding Level of Care Code Tele Est Pt Level 4 (09215) Complex EM visit Add On G2211 Diagnoses Depression F32.A Anxiety disorder F41.9 Chronic back pain M54.9; G89.29 Hypogonadism male E29.1 Additional Codes NEDA-7 Assessment Billing - NEDA-7 Assessment Tool: NEDA-7 Assessment 47779 ([id number]) PHQ-9 - 42043 - PHQ-9 Billing: Yes ([id number]) Assessment & Plan Assessment & Plan (1) Depression: Code(s): F32.A - Depression, unspecified Category: Medical Plan: Referral to Monserrat Myers for psychiatric evaluation to adjust medications and treatment strategies based on comprehensive assessment and urgency due to patient's severe anxiety. Condition is chronic and stable will continue to monitor. (2) Anxiety disorder: Code(s): F41.9 - Anxiety disorder, unspecified Category: Medical Plan: Referral to Monserrat Myers for psychiatric evaluation to adjust medications and treatment strategies based on comprehensive assessment and urgency due to patient's severe anxiety. Condition is chronic and stable will continue to monitor. (3) Chronic back pain: Code(s): M54.9 - Dorsalgia, unspecified; G89.29 - Other chronic pain Category: Medical Plan: Continued management of back pain with conservative measures, with no immediate need for intervention given current level of symptom interference. Condition is chronic and stable continue to monitor. (4) Hypogonadism male: Code(s): E29.1 - Testicular hypofunction Category: Medical Plan: Referral to a urologist for further evaluation of low DHEA levels and follow-up on pending testosterone level results, considering potential testosterone replacement therapy. Plan Plan Patient was informed and verbally consented to the use of an ambient scribe for clinic note documentation during this visit. 1. Anxiety Disorder Referral to Monserrat Myers for psychiatric evaluation to adjust medications and treatment strategies based on comprehensive assessment and urgency due to patient's severe anxiety. 2. Chronic Back Pain Continued management of back pain with conservative measures, with no immediate need for intervention given current level of symptom interference. 3. Hypogonadism Referral to a urologist for further evaluation of low DHEA levels and follow-up on pending testosterone level results, considering potential testosterone replacement therapy. During the consultation, I discussed the potential interplay of anxiety, fatigue, and hormonal imbalances with the patient, noting that low testosterone levels can significantly impact energy and mental health. I explained the rationale for referring him to a patient relations specialist, Monserrat Myers, who will provide a detailed assessment and recommendations for medication adjustments. I emphasized the importance of this evaluation due to the patient's history of multiple medications. Furthermore, I outlined the need to investigate his low DHEA sulfate levels through a referral to a urologist to consider options such as testosterone therapy. I highlighted the necessity of coordinating care among specialists to accurately address his multifaceted symptoms. I advised the patient to promptly report any worsening of symptoms or new concerns, ensuring responsive management. Orders: Referrals Urology Referral R79.89 - Other specified abnormal findings of blood chemistry Psychiatry Referral F32.A - Depression, unspecified, F41.9 - Anxiety disorder, unspecified Patient Instructions: - Expect a call from Monserrat Myers for a psychiatric evaluation. - Await a call from the urologist to discuss hormonal evaluation and potential treatments. - Follow up in one month via telehealth for ongoing assessment. - Notify me immediately if experiencing thoughts of self-harm or hearing voices. - Avoid energy drinks as they may increase anxiety. - Monitor symptoms and inform me if there is any change in severity.
== END 2024-10-24 16:37 | disposition home or self-care (01) ==
LOC: HO.HMCSH 15:49
PROVIDERS: PCP Internal Medicine; Visit Provider Physician Assistant Medical
DX: F32.A Depression, unspecified (principal); F41.9 Anxiety disorder, unspecified; M54.9 Dorsalgia, unspecified; G89.29 Other chronic pain; E29.1 Testicular hypofunction

== ENCOUNTER → 2024-10-24 15:49 | Outpatient (BNVA) | payer OTHER, SELFPAY | PROVIDERS: PCP Internal Medicine; Visit Provider Physician Assistant Medical | DX: F32.A Depression, unspecified (principal); F41.9 Anxiety disorder, unspecified; M54.9 Dorsalgia, unspecified; G89.29 Other chronic pain; E29.1 Testicular hypofunction | CPT/HCPCS: 96127 ==

== ENCOUNTER 2024-12-08 13:33 | Outpatient (AMB) | payer OTHER, SELFPAY ==
--- NOTE | 2024-12-08 12:33 | A.OFFPSYCH_ITS ---
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 Pt reports he is not taking any medications right now. He reports low mood, anhedonia, loss of interest and pleasure in activities, low motivation, feeling tired, low energy, poor appetite, feeling bad about himself, and passive SI . He denies plan or intent to hurt or kill himself; He reports feeling nervous and anxious. he worries frequently. he is easily irritable. 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 He also reports several other stressors: parenting his young adult children, a break up of 16 yr relationship last year, weaning off antidepressant in March 2024 due tto feeling tired from it, and a neighbor behind his home built an oversize mansion which impedes his view behind his home. He recently had a work up and found his testosterone and DHEA sulfate is low which could impact mood and energy; he is also slightly anemic. He does say he sometimes skips meals. Past Psychiatric History: outpatient treatment with meds on and off since 2018; went to marriage counseling in 2007 before divorce . No IPLOC. Past trials of prozac, lexapro, celexa, sertraline, hydroxyzine all caused fatigue Mental Status Exam Mental Status Exam Patient Appearance: Well Grooomed and Appropriate Patient Orientation: Person, Place, Time and Situation Level of Consciousness: Awake, Appropriate and Alert Patient Behavior: Appropriate, Talkative and Good Eye Contact Mood Description: Depressed and Anxious Affect Description: Depressed and Anxious Patient Cognition Impaired: No Ability to Follow Directions: Good Speech Pattern: Clear and Coherent Memory Description: Intact Hallucinations: None Delusions: Not Present Thought Process: Intact Thought Content: positive for Intact and positive for Circumstantial Judgement: Good Assessment and Plan Assessment & Plan (1) Major depressive disorder, recurrent, moderate: Status: Acute Code(s): F33.1 - Major depressive disorder, recurrent, moderate (2) NEDA (generalized anxiety disorder): Status: Acute Code(s): F41.1 - Generalized anxiety disorder Plan rule out ADHD rule out medical contributions to mood: low testosterone , DHEA, poor nutrition, and lack of exercise discussed holding off medication presciption until sees urology increase protein intake and eat vegetable, fruits, whole grains lift weights 10-25 pounds for 10-15 min a day speed walk 10-20 min a day continue fish oil and magnesium supplements retrun in 6-8 weeks Counseling and coordination of Care Pt. Self Management counseling: Exercise, Maintenance-social rhythm, Med illness tx adherence, Mod caffeine/ETOH intake, Nutrition education and improvement, Sleep hygiene, Behavior activation, General coping skills and Problem solving Medication management counseling: Effectiveness, Side effects, Dosing range, Duration, Drug interaction and Adherence Diagnosis and Prognosis Counseling: Accuracy of diagnosis, Prognosis over time, Impact of diagnosis on life functions, Impact of family relationship, Problematic behaviors secondary to diagnosis and Adequacy of current interventions Details: I spent 90 minutes reviewing the record, seeing the patient and documenting in the medical record. Counseling provided to the patient/caregiver as outlined below. Addressed patient/caregiver concerns regarding current medication regime including effective adherence. Addressed patient/caregiver concerns regarding diagnosis and prognosis including accuracy of diagnosis, prognosis over time, impact of diagnosis. Addressed patient/caregiver concerns regarding impact of recent stressors. [facility] Medical History (Updated 12/08/24 @ 15:22 by Monserrat Jack APRN) Hypogonadism male Chronic back pain Low testosterone Back pain Numerous moles Anxiety disorder Erectile dysfunction Anxiety Allergic rhinitis Headache Depression Thoracic degenerative disc disease Chronic low back pain Anemia Varicose vein of leg Bilateral carotid artery stenosis Vertigo Obstructive sleep apnea on CPAP Hyperlipidemia IBS (irritable bowel syndrome) Surgical History History of colonoscopy (~09/17/21) Family History Father Back problem Cancer Mother Knee problem Social History Housing: House Alcohol intake: current Alcohol intake frequency: a few times a week Patient Tobacco Use Status: Former Tobacco user service: No Current occupational status: employed Cognitive needs: No Hearing needs: No Vision needs: Yes (rx glasses) Social History: lives with one daughter who is in college. grew up in [place] with both M& F and a brother 1 yr older. Describes self as average student. graduated from . 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 Substance History: no hx substance abuse; no tobacco, etoh 2 drinks per week, occasional THC edible 2-4 times a year. Trauma History: none known Coding Level of Care Code Psych Diag Eval w/Med (98598) Diagnoses Major depressive disorder, recurrent, moderate F33.1 NEDA (generalized anxiety disorder) F41.1
== END 2024-12-08 14:50 | disposition home or self-care (01) ==
LOC: HO.HOP 13:33
PROVIDERS: PCP Internal Medicine; Visit Provider Clinical Nurse Specialist Psychiatric/Mental Health
DX: F33.1 Major depressive disorder, recurrent, moderate (principal); F41.1 Generalized anxiety disorder
CPT/HCPCS: 90792

== ENCOUNTER → 2024-12-08 13:33 | Outpatient (BNVA) | payer OTHER, SELFPAY | PROVIDERS: PCP Internal Medicine; Visit Provider Clinical Nurse Specialist Psychiatric/Mental Health | DX: F33.1 Major depressive disorder, recurrent, moderate (principal); F41.1 Generalized anxiety disorder | CPT/HCPCS: 90792 ==

== ENCOUNTER 2024-12-22 15:21 | Outpatient (AMB) | payer OTHER, SELFPAY ==
--- NOTE | 2024-12-22 15:43 | MHC.OFFVISPS ---
Intake Intake Visit Reasons: f/u consultation Systems Planner Required: No Allergies No Known Allergies Allergy (Verified 10/24/24 16:09) Medication List - Last Reconciled 12/22/24 by Monserrat Jack APRN aspirin (Adult Aspirin Regimen) 81 mg PO DAILY atorvastatin 20 mg PO BEDTIME naproxen 500 mg PO BID 30 days sildenafil 100 mg PO DAILY HPI- Psychiatric Chief Complaint: f/u consultation HPI Narrative: pt here for follow-up of anxiety and depression. He felt that he could not wait for his endocrinology appointment. His PHQ-9 equals 11 his G A D 7 equals 7 he rates his symptoms as very difficult what is interest and pleasure in activities he reports feeling down hopeless difficulty falling asleep difficulty staying asleep he reports low energy he reports trouble concentrating. He denies suicidal ideation. He brings a list of medications he took in the past that he thought he did well on those include Prozac Lexapro and Wellbutrin. He says that he has 1 other meds but could not remember see below Past Psychiatric History: outpatient treatment with meds on and off since 2018; went to marriage counseling in 2007 before divorce . No IPLOC. Past trials of prozac, lexapro, celexa, sertraline, hydroxyzine all caused fatigue Subjective Subjective Subjective Medication Compliance: Yes Side effects from medications: No Review of Systems Medical Review of Systems: unchanged Mental Status Exam Mental Status Exam Patient Appearance: Well Grooomed and Appropriate Patient Orientation: Person, Place, Time and Situation Level of Consciousness: Awake, Appropriate and Alert Patient Behavior: Appropriate, Talkative and Good Eye Contact Mood Description: Depressed and Anxious Affect Description: Depressed and Anxious Patient Cognition Impaired: No Ability to Follow Directions: Good Speech Pattern: Clear and Coherent Memory Description: Intact Hallucinations: None Delusions: Not Present Thought Process: Intact Thought Content: positive for Intact and positive for Circumstantial Judgement: Good Assessment and Plan Assessment & Plan (1) Major depressive disorder, recurrent, moderate: Status: Acute Code(s): F33.1 - Major depressive disorder, recurrent, moderate (2) NEDA (generalized anxiety disorder): Status: Acute Code(s): F41.1 - Generalized anxiety disorder Plan Start Prozac 20 mg daily return in 4-6 weeks for follow-up Medications: New fluoxetine (Prozac) 20 mg PO DAILY 30 caps 2RF Counseling and coordination of Care Pt. Self Management counseling: Exercise, Maintenance-social rhythm, Med illness tx adherence, Mod caffeine/ETOH intake, Nutrition education and improvement, Sleep hygiene, Behavior activation, General coping skills and Problem solving Medication management counseling: Effectiveness, Side effects, Dosing range, Duration, Drug interaction and Adherence Diagnosis and Prognosis Counseling: Accuracy of diagnosis, Prognosis over time, Impact of diagnosis on life functions, Impact of family relationship, Problematic behaviors secondary to diagnosis and Adequacy of current interventions Details: I spent 40 minutes reviewing the record, seeing the patient and documenting in the medical record. Counseling provided to the patient/caregiver as outlined below. Addressed patient/caregiver concerns regarding current medication regime including effective adherence. Addressed patient/caregiver concerns regarding diagnosis and prognosis including accuracy of diagnosis, prognosis over time, impact of diagnosis. Addressed patient/caregiver concerns regarding impact of recent stressors. [facility] Medical History (Updated 12/08/24 @ 15:22 by Monserrat Jack APRN) Hypogonadism male Chronic back pain Low testosterone Back pain Numerous moles Anxiety disorder Erectile dysfunction Anxiety Allergic rhinitis Headache Depression Thoracic degenerative disc disease Chronic low back pain Anemia Varicose vein of leg Bilateral carotid artery stenosis Vertigo Obstructive sleep apnea on CPAP Hyperlipidemia IBS (irritable bowel syndrome) Surgical History History of colonoscopy (~09/17/21) Family History Father Back problem Cancer Mother Knee problem Social History Housing: House Alcohol intake: current Alcohol intake frequency: a few times a week Patient Tobacco Use Status: Former Tobacco user service: No Current occupational status: employed Cognitive needs: No Hearing needs: No Vision needs: Yes (rx glasses) Social History: lives with one daughter who is in college. grew up in [place] with both M& F and a brother 1 yr older. Describes self as average student. graduated from . 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 Substance History: no hx substance abuse; no tobacco, etoh 2 drinks per week, occasional THC edible 2-4 times a year. Trauma History: none known Coding Level of Care Code Est Pt Level 4 (33856) Diagnoses Major depressive disorder, recurrent, moderate F33.1 NEDA (generalized anxiety disorder) F41.1
== END 2024-12-22 17:07 | disposition home or self-care (01) ==
LOC: HO.HOP 15:21
PROVIDERS: PCP Internal Medicine; Visit Provider Clinical Nurse Specialist Psychiatric/Mental Health
DX: F33.1 Major depressive disorder, recurrent, moderate (principal); F41.1 Generalized anxiety disorder
CPT/HCPCS: 99214

== ENCOUNTER 2025-01-08 15:31 | Outpatient (AMB) | payer OTHER, SELFPAY ==
--- NOTE | 2025-01-08 15:39 | MHC.OFFVISPS ---
Intake Intake Visit Reasons: f/u consultation Process Environmental Technician Required: No Allergies No Known Allergies Allergy (Verified 01/19/25 22:29) Medication List - Last Reconciled 01/08/25 by Monserrat Jack APRN aspirin (Adult Aspirin Regimen) 81 mg PO DAILY atorvastatin 20 mg PO BEDTIME fluoxetine (Prozac) 20 mg PO DAILY naproxen 500 mg PO BID 30 days sildenafil 100 mg PO DAILY HPI- Psychiatric Chief Complaint: f/u consultation HPI Narrative: pt reports worsening; prozac not helping his anxiety and maybe causing slightly more agitation/edginess. PHQ9=14 and GAD7=13. pt feels discouraged and wants to try alternative medication. Pt reports SI with no plan and no intent. Past Psychiatric History: outpatient treatment with meds on and off since 2017; went to marriage counseling in 2007 before divorce . No IPLOC. Past trials of prozac, lexapro, celexa, sertraline, hydroxyzine all caused fatigue Subjective Subjective Subjective Medication Compliance: Yes Side effects from medications: No Review of Systems Medical Review of Systems: unchanged Mental Status Exam Mental Status Exam Patient Appearance: Well Grooomed and Appropriate Patient Orientation: Person, Place, Time and Situation Level of Consciousness: Awake, Appropriate and Alert Patient Behavior: Appropriate, Talkative and Good Eye Contact Mood Description: Depressed and Anxious Affect Description: Depressed and Anxious Patient Cognition Impaired: No Ability to Follow Directions: Good Speech Pattern: Clear and Coherent Memory Description: Intact Hallucinations: None Delusions: Not Present Thought Process: Intact Thought Content: positive for Intact and positive for Circumstantial Judgement: Good Assessment and Plan Assessment & Plan (1) Major depressive disorder, recurrent, moderate: Status: Acute Code(s): F33.1 - Major depressive disorder, recurrent, moderate (2) NEDA (generalized anxiety disorder): Status: Acute Code(s): F41.1 - Generalized anxiety disorder Plan stop Prozac 20 mg start pristiq 25mg daily retrun in 2 weeks Medications: New desvenlafaxine succinate ER (Pristiq) 25 mg PO DAILY 30 tabs 2RF Discontinued fluoxetine Discontinued Reason: Doctor's Order 20 mg PO DAILY 30 caps 2RF Counseling and coordination of Care Pt. Self Management counseling: Exercise, Maintenance-social rhythm, Med illness tx adherence, Mod caffeine/ETOH intake, Nutrition education and improvement, Sleep hygiene, Behavior activation, General coping skills and Problem solving Medication management counseling: Effectiveness, Side effects, Dosing range, Duration, Drug interaction and Adherence Diagnosis and Prognosis Counseling: Accuracy of diagnosis, Prognosis over time, Impact of diagnosis on life functions, Impact of family relationship, Problematic behaviors secondary to diagnosis and Adequacy of current interventions Details: I spent 25 minutes reviewing the record, seeing the patient and documenting in the medical record. Counseling provided to the patient/caregiver as outlined below. Addressed patient/caregiver concerns regarding current medication regime including effective adherence. Addressed patient/caregiver concerns regarding diagnosis and prognosis including accuracy of diagnosis, prognosis over time, impact of diagnosis. Addressed patient/caregiver concerns regarding impact of recent stressors. [facility] Medical History Hypogonadism male Chronic back pain Low testosterone Back pain Numerous moles Anxiety disorder Erectile dysfunction Anxiety Allergic rhinitis Headache Depression Thoracic degenerative disc disease Chronic low back pain Anemia Varicose vein of leg Bilateral carotid artery stenosis Vertigo Obstructive sleep apnea on CPAP Hyperlipidemia IBS (irritable bowel syndrome) Surgical History History of colonoscopy (~09/17/21) Family History Father Back problem Cancer Mother Knee problem Social History Housing: House Alcohol intake: current Alcohol intake frequency: a few times a week Patient Tobacco Use Status: Former Tobacco user service: No Current occupational status: employed Cognitive needs: No Hearing needs: No Vision needs: Yes (rx glasses) Social History: lives with one daughter who is in college. grew up in [place] with both M& F and a brother 1 yr older. Describes self as average student. graduated from . 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 Substance History: no hx substance abuse; no tobacco, etoh 2 drinks per week, occasional THC edible 2-4 times a year. Trauma History: none known Coding Level of Care Code Est Pt Level 3 (75458) Diagnoses Major depressive disorder, recurrent, moderate F33.1 NEDA (generalized anxiety disorder) F41.1
== END 2025-01-08 16:10 | disposition home or self-care (01) ==
LOC: HO.HOP 15:31
PROVIDERS: PCP Internal Medicine; Visit Provider Clinical Nurse Specialist Psychiatric/Mental Health
DX: F33.1 Major depressive disorder, recurrent, moderate (principal); F41.1 Generalized anxiety disorder
CPT/HCPCS: 99213

== ENCOUNTER 2025-01-19 15:21 | Outpatient (AMB) | payer OTHER, SELFPAY ==
--- NOTE | 2025-01-19 15:58 | A.OFFVIS_ITS ---
Intake Visit Reasons: hypogonadism Intake Note: New patient presents today for initial visit for hypogonadism Urology Medication:Sildenafil Blood Thinner:Aspirin Antibiotic Allergies:None Allergies No Known Allergies Allergy (Verified 01/19/25 22:29) Medication List - Last Reconciled 01/19/25 by ARUN Montes- aspirin (Adult Aspirin Regimen) 81 mg PO DAILY atorvastatin 20 mg PO BEDTIME desvenlafaxine succinate ER (Pristiq) 25 mg PO DAILY sildenafil 100 mg PO DAILY HPI Comments Details: Mike is a 55-year-old male patient of Dr. Cheung. He has a past medical history of anxiety, chronic back pain, allergic rhinitis, headaches, depression, anemia, vertigo, obstructive sleep apnea on CPAP, hyperlipidemia, and irritable bowel syndrome. He presents to the office today as a new patient for hypogonadism. In discussion with the patient today he reports having followed up with his new PCP as previous PCP has since retired. He discusses his ongoing issues with anxiety and depression and continues to follow-up with his therapist, psychiatrist, and PCP. He discusses his ongoing issues with anxiety and feels symptoms fluctuate. He reports there are days that he feels symptoms are manageable however has often been feeling days to be challenging. He reports feeling most of the medications he has been trialing has him feeling fatigued. Recent testosterone results were reviewed with the patient today as noted and trended below: PSA: 07/05 0.4 Testosterone: 11/02 248 When asked he denies any history of substance abuse, previous trauma or previous anabolic steroid use. We did discuss further workup to include labs s uch as FSH, LH, estradiol, prolactin, and repeat testosterone free and total. He otherwise denies any bothersome urinary issues. He denies urinary urgency, urinary frequency, incontinence, nocturia, hematuria, dysuria, foul smelling urine, changes to urinary stream, flank pain, fever, and or chills. He is happy with his current voiding parameters. In office urinalysis results reviewed with the patient today. All questions were answered. We did discussed potential causes of and treatment options of hypogonadism. We discussed importance of lifestyle modifications to assist with hypogonadism. He otherwise offers no other issues or concerns at this time. Discussion Notes I discussed with the patient that his low testosterone levels could contribute to symptoms such as fatigue and brain fog, but may not fully explain his anxiety. We agreed on the need for additional blood work to further evaluate the cause of his hypogonadism. I emphasized the importance of continuing therapy and medication management for his anxiety, and the patient acknowledged having upcoming appointments with his therapist and psychiatrist. Plan Further laboratory tests will be conducted to determine the etiology of the patient's hypogonadism, with a focus on distinguishing between pituitary and testicular origins. The patient is to continue his current anxiety medication and attend regular therapy sessions to address his mental health concerns. Incorporating regular exercise and stress management strategies into his routine is recommended to aid in anxiety management. Open communication during therapy is emphasized to ensure accurate assessment and effective treatment. [facility] Medical History Hypogonadism male Chronic back pain Low testosterone Back pain Numerous moles Anxiety disorder Erectile dysfunction Anxiety Allergic rhinitis Headache Depression Thoracic degenerative disc disease Chronic low back pain Anemia Varicose vein of leg Bilateral carotid artery stenosis Vertigo Obstructive sleep apnea on CPAP Hyperlipidemia IBS (irritable bowel syndrome) Surgical History History of colonoscopy (~09/17/21) Family History Father Back problem Cancer Mother Knee problem Social History Housing: House Alcohol intake: current Alcohol intake frequency: a few times a week Patient Tobacco Use Status: Former Tobacco user service: No Current occupational status: employed Cognitive needs: No Hearing needs: No Vision needs: Yes (rx glasses) Review of Systems Const All systems reviewed & are unremarkable except as noted in HPI and below Physical Exam Const General: cooperative, healthy appearing, comfortable, no acute distress, well developed, alert and awake Orientation/consciousness: patient oriented x3 Limitations: no limitations HEENT Head: Yes normal to inspection, Yes normocephalic and Yes atraumatic Ears: hearing grossly normal bilaterally Eyes General: appearance normal, both eyes and all related structures Neck Neck: Yes normal visual inspection and Yes trachea midline Chest Chest palpation & inspection: normal inspection of the chest Resp Effort & Inspection: normal respiratory effort and able to speak in complete sentences Cardio Rate: regular rate GI Inspection: Yes normal to inspection General: Yes no CVA tenderness Back/Spine/Pelvis Back: no CVA tenderness Skin General skin exam: no rashes or lesions noted Neuro General: patient oriented x3 Extrem General: Yes normal to inspection Psych Appearance: grossly normal and well kempt Mental Status: mental status grossly normal Speech and movement: Normal speech and movement present and Clear speech present Affect: normal affect Attitude: cooperative Thought process: Normal thought process present Thought content: Normal thought content present Insight: Fair insight present (Psych) Judgement: Fair judgement present (Psych) Results AMB Urinalysis, Automated UA Leukoctes 0 Adria/uL Last Edit by Magaly Aldrich on 01/19/25 16:46 UA Nitrite Negative Last Edit by Magaly Aldrich on 01/19/25 16:46 UA Urobilinogen 3.5 mg/dL Last Edit by Magaly Aldrich on 01/19/25 16:46 UA Protein 15 mg/dL Last Edit by Magaly Aldrich on 01/19/25 16:46 UA pH 5.5 Last Edit by Magaly Aldrich on 01/19/25 16:46 UA Blood 10 Bobo/uL Last Edit by Magaly Aldrich on 01/19/25 16:46 UA Specific Austin 1.025 Last Edit by Magaly Aldrich on 01/19/25 16:46 UA Ketone Negative Last Edit by Magaly Aldrich on 01/19/25 16:46 UA Bilirubin 0 mg/dL Last Edit by Magaly Aldrich on 01/19/25 16:46 UA Glucose 0 mg/dL Last Edit by Magaly Aldrich on 01/19/25 16:46 Results Reviewed Results Reviewed: Laboratory Last Values Urine pH (Auto) 5.5 01/19/25 16:10 Specific Austin (Auto) 1.025 01/19/25 16:10 Urine Protein (Auto) 15 mg/dL 01/19/25 16:10 Glucose (UA)(Auto) 0 mg/dL 01/19/25 16:10 Urine Ketones (Auto) Negative 01/19/25 16:10 Urine Blood (Auto) 10 Bobo/uL 01/19/25 16:10 Urine Nitrite (Auto) Negative 01/19/25 16:10 Urine Bilirubin (Auto) 0 mg/dL 01/19/25 16:10 Urine Urobilinogen (Auto) 3.5 mg/dL 01/19/25 16:10 Leukocyte Esterase (Auto) 0 Adria/uL 01/19/25 16:10 Assessment & Plan Assessment & Plan (1) Low testosterone: Code(s): R79.89 - Other specified abnormal findings of blood chemistry Category: Medical (2) Hypogonadism male: Code(s): E29.1 - Testicular hypofunction Category: Medical Plan In office urinalysis results reviewed with the patient today; as noted above. Recent testosterone results reviewed with the patient today; as noted above. We did discussed potential causes as well as further treatment options for hypogonadism and risks and benefits of these treatment options. All questions were answered. He denies any bothersome urinary issues or concerns. He reports be happy with current voiding parameters. We discussed importance of lifestyle modifications to assist with hypogonadism as well as overall health and well-being. Will obtain FSH, LH, prolactin, estradiol, testosterone, and free testosterone for further assessment evaluation. Follow-up in 1-2months with labs to be completed prior; or sooner with any issues, concerns, and or questions. Orders: Orders Testosterone, Free/Total Today R79.89 - Other specified abnormal findings of blood chemistry Prolactin Today R79.89 - Other specified abnormal findings of blood chemistry Follicle Stimulating Hormone Today R79.89 - Other specified abnormal findings of blood chemistry Estrad Free (Tot Ultra + Free) Today R79.89 - Other specified abnormal findings of blood chemistry AMB Urinalysis Automated Today Z13.9 - Encounter for screening, unspecified Sex Hormone Binding Globulin Today R79.89 - Other specified abnormal findings of blood chemistry Lutenizing Hormone Today R79.89 - Other specified abnormal findings of blood chemistry Patient Instructions: The patient had an opportunity to ask questions regarding the treatment plan. All questions were answered. Physical exam, labs, and imaging were discussed and reviewed in detail. As well as risks, benefits, and discussion of treatment choices. No major barriers to understanding were identified. The patient expressed understanding and agreement with the above treatment plan. The patient was made aware they should contact our office by phone for worsening of their current condition, the appearance of new symptoms, or with any questions or concerns. Compliance is encouraged with any medications and follow up testing that is ordered. It is a privilege to be allowed the opportunity to participate in? your urological care.? Again, if you have any questions or concerns If you have any questions or concerns please do not hesitate to contact me. The office is [phone]. This note is constructed using voice recognition software. While every effort has been made to ensure accuracy veneer stacker errors may have been included. Yours sincerely, ASHLEY Montes Coding Level of Care Code New Pt Level 4 (05181) Diagnoses Low testosterone R79.89 Hypogonadism male E29.1 Time Spent (min) 45
== END 2025-01-19 16:39 | disposition home or self-care (01) ==
LOC: HO.HUSH 15:21
PROVIDERS: PCP Internal Medicine; Visit Provider Nurse Practitioner Family
DX: R79.89 Other specified abnormal findings of blood chemistry (principal); E29.1 Testicular hypofunction; Z13.9 Encounter for screening, unspecified
CPT/HCPCS: 99204

== ENCOUNTER → 2025-01-19 15:21 | Outpatient (BNVA) | payer OTHER, SELFPAY | PROVIDERS: PCP Internal Medicine; Visit Provider Nurse Practitioner Family | DX: E29.1 Testicular hypofunction (principal) | CPT/HCPCS: 81003 ==

== ENCOUNTER 2025-01-22 15:37 | Outpatient (AMB) | payer OTHER, SELFPAY ==
--- NOTE | 2025-01-22 15:04 | A.OFFPSYCH_ITS ---
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 no reported side effects; pt not sleeping well; is taking some time off work due to severe anxiety and more trouble being at work due to it; feeling on edge; ruminating. Past Psychiatric History: outpatient treatment with meds on and off since 2017; went to marriage counseling in 2007 before divorce . No IPLOC. Past trials of prozac, lexapro, celexa, sertraline, hydroxyzine all caused fatigue Subjective Subjective Subjective Medication Compliance: Yes Side effects from medications: No Review of Systems Medical Review of Systems: unchanged Mental Status Exam Mental Status Exam Patient Appearance: Well Grooomed and Appropriate Patient Orientation: Person, Place, Time and Situation Level of Consciousness: Awake, Appropriate and Alert Patient Behavior: Appropriate, Talkative and Good Eye Contact Mood Description: Depressed and Anxious Affect Description: Depressed and Anxious Patient Cognition Impaired: No Ability to Follow Directions: Good Speech Pattern: Clear and Coherent Memory Description: Intact Hallucinations: None Delusions: Not Present Thought Process: Intact Thought Content: positive for Intact and positive for Circumstantial Judgement: Good Telehealth Telehealth Telehealth Platform: Other (please specify) ([email or web address]) Location of provider rendering services: practice address Location of patient: address on file Patient Identification confirmed using: Name, : Yes Telehealth method: voice only Patient verbally consented to treatment: Yes Patient verbally consented to billing insurance company: Yes Patient informed of any privacy concerns related to visit: Yes Minutes spent on Phone/Video with Pt.: 20 Assessment and Plan Assessment & Plan (1) Major depressive disorder, recurrent, moderate: Status: Acute Code(s): F33.1 - Major depressive disorder, recurrent, moderate (2) NEDA (generalized anxiety disorder): Status: Acute Code(s): F41.1 - Generalized anxiety disorder Plan Increase pristiq to 50mg daily and start trazodone for sleep follow up in 4 weeks Medications: New trazodone 50 mg PO BEDTIME PRN 30 tabs 1RF sleep Counseling and coordination of Care Pt. Self Management counseling: Exercise, Maintenance-social rhythm, Med illness tx adherence, Mod caffeine/ETOH intake, Nutrition education and improvement, Sleep hygiene, Behavior activation, General coping skills and Problem solving Medication management counseling: Effectiveness, Side effects, Dosing range, Duration, Drug interaction and Adherence Diagnosis and Prognosis Counseling: Accuracy of diagnosis, Prognosis over time, Impact of diagnosis on life functions, Impact of family relationship, Problematic behaviors secondary to diagnosis and Adequacy of current interventions Details: I spent 30 minutes reviewing the record, seeing the patient and documenting in the medical record. Counseling provided to the patient/caregiver as outlined below. Addressed patient/caregiver concerns regarding current medication regime including effective adherence. Addressed patient/caregiver concerns regarding diagnosis and prognosis including accuracy of diagnosis, prognosis over time, impact of diagnosis. Addressed patient/caregiver concerns regarding impact of recent stressors. [facility] Medical History Hypogonadism male Chronic back pain Low testosterone Back pain Numerous moles Anxiety disorder Erectile dysfunction Anxiety Allergic rhinitis Headache Depression Thoracic degenerative disc disease Chronic low back pain Anemia Varicose vein of leg Bilateral carotid artery stenosis Vertigo Obstructive sleep apnea on CPAP Hyperlipidemia IBS (irritable bowel syndrome) Surgical History History of colonoscopy (~09/17/21) Family History Father Back problem Cancer Mother Knee problem Social History Housing: House Alcohol intake: current Alcohol intake frequency: a few times a week Patient Tobacco Use Status: Former Tobacco user service: No Current occupational status: employed Cognitive needs: No Hearing needs: No Vision needs: Yes (rx glasses) Social History: lives with one daughter who is in college. grew up in [place] with both M& F and a brother 1 yr older. Describes self as average student. graduated from . 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 Substance History: no hx substance abuse; no tobacco, etoh 2 drinks per week, occasional THC edible 2-4 times a year. Trauma History: none known Coding Level of Care Code Tele Est Pt Level 4 (48199) Diagnoses Major depressive disorder, recurrent, moderate F33.1 NEDA (generalized anxiety disorder) F41.1
== END 2025-01-22 15:38 | disposition home or self-care (01) ==
LOC: HO.HOP 15:37
PROVIDERS: PCP Internal Medicine; Visit Provider Clinical Nurse Specialist Psychiatric/Mental Health
DX: F33.1 Major depressive disorder, recurrent, moderate (principal); F41.1 Generalized anxiety disorder
CPT/HCPCS: 99214

== ENCOUNTER 2025-02-12 14:25 | Outpatient (AMB) | payer OTHER, SELFPAY ==
--- NOTE | 2025-02-12 14:41 | A.OFFPSYCH_ITS ---
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 pt reports no improvement with pristiq. 50mg daily No reported side effects; pt not sleeping well; Pt is unable to work due to severe anxiety and depression; He reports depressed mood, anhedonia,low energy, anxious and nervous every day; Pt feeling more discouraged and hopeless due to not responding to medications; He denies SI or Hi. he feels a duty to his daughter and continues to try to provide for her. His PHQ9=16 and GAD7= 12. Past Psychiatric History: outpatient treatment with meds on and off since 2017; went to marriage counseling in 2007 before divorce . No IPLOC. Past trials of prozac, lexapro, celexa, sertraline, hydroxyzine all caused fatigue Subjective Subjective Subjective Medication Compliance: Yes Side effects from medications: No Review of Systems Medical Review of Systems: unchanged Mental Status Exam Mental Status Exam Patient Appearance: Well Grooomed and Appropriate Patient Orientation: Person, Place, Time and Situation Level of Consciousness: Awake, Appropriate and Alert Patient Behavior: Appropriate, Talkative, Anxious and Good Eye Contact Mood Description: Withdrawn, Constricted, Depressed, Anxious and Sad Affect Description: Withdrawn, Constricted, Depressed, Anxious and Sad Patient Cognition Impaired: No Ability to Follow Directions: Good Speech Pattern: Clear and Coherent Memory Description: Intact Hallucinations: None Delusions: Not Present Thought Process: Intact Thought Content: positive for Intact and positive for Circumstantial Judgement: Good Assessment and Plan Assessment & Plan (1) Major depressive disorder, recurrent, moderate: Status: Acute Code(s): F33.1 - Major depressive disorder, recurrent, moderate (2) NEDA (generalized anxiety disorder): Status: Acute Code(s): F41.1 - Generalized anxiety disorder Plan Continue pristiq to 50mg daily start wellbutrin xl 150mg qam start buspar 5 mg bid trazodone for sleep prn refer to [facility] follow up in 6 weeks Medications: New bupropion HCl XL (Wellbutrin XL) 150 mg PO QAM 30 tabs 0RF buspirone 5 mg PO BID 60 tabs 2RF desvenlafaxine ER 50 mg PO DAILY 30 tabs 1RF Discontinued desvenlafaxine succinate ER Discontinued Reason: Doctor's Order 25 mg PO DAILY 30 tabs 2RF Counseling and coordination of Care Pt. Self Management counseling: Exercise, Maintenance-social rhythm, Med illness tx adherence, Mod caffeine/ETOH intake, Nutrition education and improvement, Sleep hygiene, Behavior activation, General coping skills and Problem solving Medication management counseling: Effectiveness, Side effects, Dosing range, Duration, Drug interaction and Adherence Diagnosis and Prognosis Counseling: Accuracy of diagnosis, Prognosis over time, Impact of diagnosis on life functions, Impact of family relationship, Problematic behaviors secondary to diagnosis and Adequacy of current interventions Details: I spent 35 minutes reviewing the record, seeing the patient and documenting in the medical record. Counseling provided to the patient/caregiver as outlined below. Addressed patient/caregiver concerns regarding current medication regime including effective adherence. Addressed patient/caregiver concerns regarding diagnosis and prognosis including accuracy of diagnosis, prognosis over time, impact of diagnosis. Addressed patient/caregiver concerns regarding impact of recent stressors. [facility] Medical History (Updated 02/26/25 @ 11:37 by Hortensia Ordoñez RN) Tinnitus History of concussion Hypogonadism male Chronic back pain Low testosterone Back pain Numerous moles Anxiety disorder Erectile dysfunction Anxiety Allergic rhinitis Headache Depression Thoracic degenerative disc disease Chronic low back pain Anemia Varicose vein of leg Bilateral carotid artery stenosis Vertigo Obstructive sleep apnea on CPAP Hyperlipidemia IBS (irritable bowel syndrome) Surgical History (Updated 02/26/25 @ 10:44 by Hortensia Ordoñez RN) H/O hand surgery History of colonoscopy (~09/17/21) Family History Father Back problem Cancer Mother Knee problem Social History Household Members: Other Household Members Other:: Youngest daughter Housing: House Alcohol intake: current Alcohol intake frequency: a few times a week Patient Tobacco Use Status: Former Tobacco user Tobacco use type: Cigarette Do you have thoughts of harming others: None service: No Current occupational status: employed Cognitive needs: No Hearing needs: No Vision needs: Yes (rx glasses) Social History: lives with one daughter who is in college. grew up in [place] with both M& F and a brother 1 yr older. Describes self as average student. graduated from . 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 Substance History: no hx substance abuse; no tobacco, etoh 2 drinks per week, occasional THC edible 2-4 times a year. Trauma History: none known Coding Level of Care Code Est Pt Level 4 (31412) Diagnoses Major depressive disorder, recurrent, moderate F33.1 NEDA (generalized anxiety disorder) F41.1
== END 2025-02-12 15:29 | disposition home or self-care (01) ==
LOC: HO.HOP 14:25
PROVIDERS: PCP Internal Medicine; Visit Provider Clinical Nurse Specialist Psychiatric/Mental Health
DX: F33.1 Major depressive disorder, recurrent, moderate (principal); F41.1 Generalized anxiety disorder
CPT/HCPCS: 99214

== ENCOUNTER 2025-02-27 08:23 | Outpatient (REF) | payer OTHER, SELFPAY ==
--- NOTE | 2025-02-27 08:28 | ECG_ITS ---
Test Reason : ROUTINE EKG Blood Pressure : */* mmHG Vent. Rate : 63 BPM Atrial Rate : 63 BPM P-R Int : 142 ms QRS Dur : 114 ms QT Int : 410 ms P-R-T Axes : 32 -17 44 degrees QTcB Int : 419 ms Normal sinus rhythm Incomplete right bundle branch block Borderline ECG No previous ECGs available Referred By: Parisa Ziegler Electronically Signed By: ALEA VELASQUEZ
[2025-02-27 08:45] LABS: MANUAL DIFF FLAG NO
[2025-02-27 09:37] LABS: Hematocrit 41.9 % (42.0-52.0); Hemoglobin 14.1 g/dl (14.0-18.0); Imm Gran Abs Auto 0.01 X10*3/uL (0.00-0.03); Imm Gran Pct Auto 0.2 % (0.0-0.4); Lymphocytes Absolute Auto 0.7 X10*3/uL (1.2-4.9); Mean Corpuscular HGB Conc 33.7 g/dl (31.0-36.0); Mean Corpuscular Hemoglobin 30.4 pg (27.0-33.0); Mean Corpuscular Volume 90.3 fL (80.0-98.0); NRBC Abs Auto 0.000 X10*3/uL (0.0-0.012); NRBC Pct Auto 0.0 /100WBC (0.0-0.2); Platelet Count 235 X10*3/uL (160-400); Red Blood Count 4.64 X10*6/uL (4.60-5.80); White Blood Count 4.0 X10*3/uL (4.8-10.8)
[2025-02-27 10:19] LABS: Hemoglobin A1C 154.3317 umol/L; Total Hemoglobin (HGBA1C) 3731.5487 umol/L
[2025-02-27 10:47] LABS: Folate 15.1 ng/mL (> or = 4.0); Vitamin B12 577 pg/mL (200-900)
[2025-02-27 10:48] LABS: Parathyroid Hormone Intact 39.4 pg/mL (8.7-77.1)
[2025-02-27 12:02] LABS: Alanine Aminotransferase 38 U/L (0-40); Albumin Level 4.7 g/dL (3.5-5.0); Alkaline Phosphatase 67 U/L (39-117); Anion Gap 10 (12-20); Aspartate Amino Transferase 24 U/L (5-37); Blood Urea Nitrogen 12 mg/dL (9-16); Calcium 9.8 mg/dL (8.4-10.2); Carbon Dioxide 28 mmol/L (22-29); Chloride 106 mmol/L (96-108); Cholesterol 125 mg/dL (<200); Estimated Glomerular Filt Rate > 60; HDL Cholesterol 44 mg/dL (>40); Iron 96 mcg/dL (45-160); Magnesium 2.2 mg/dL (1.6-2.6); Percent Iron Saturation 32 % (15-50); Potassium 4.4 mmol/L (3.3-5.1); Sodium 140 mmol/L (135-145); Total Iron Binding Capacity 296 mcg/dL (228-428); Total Protein 7.3 g/dL (6.5-8.0); Triglycerides 91 mg/dL (<150); Unsaturated Iron Binding 200 ug/dL
[2025-02-27 12:16] LABS: Free T4 (Free Thyroxine) 0.93 ng/dL (0.71-1.85); Thyroid Stimulating Hormone 1.55 uIU/mL (0.32-4.0)
[2025-02-28 12:24] LABS: Lyme Abs Screen <0.90 index
[2025-03-02 07:33] LABS: Anti Nuclear Antibody Screen NEGATIVE (NEGATIVE)
== END 2025-02-27 08:24 | disposition home or self-care (01) ==
LOC: HO.LAB 08:23
PROVIDERS: PCP Internal Medicine; Visit Provider Psychiatry & Neurology Psychiatry
DX: Z01.84 Encounter for antibody response examination (principal); F41.1 Generalized anxiety disorder; R53.82 Chronic fatigue, unspecified; Z13.6 Encounter for screening for cardiovascular disorders; Z13.1 Encounter for screening for diabetes mellitus
CPT/HCPCS: 36415; 80053; 80061; 82306; 82550; 82607; 82746; 83036; 83090; 83540; 83735; 83970; 84100; 84207; 84425; 84439; 84443; 84630; 85025; 85652; 86038; 86140; 86431; 86617; 86618; 93005

== ENCOUNTER → 2025-02-27 08:28 | Outpatient (BNV) | payer OTHER, SELFPAY | PROVIDERS: PCP Internal Medicine; Visit Provider Internal Medicine | DX: I45.10 Unspecified right bundle-branch block (principal) | CPT/HCPCS: 93010 ==

== ENCOUNTER 2025-03-11 12:15 | Outpatient (RCR) | payer OTHER, SELFPAY ==
[2025-02-26 10:45] VITALS: BMI 25.9
[2025-02-26 10:48] VITALS: BP 110/72; PULSE 68; TEMP 36.8
--- NOTE | 2025-02-26 11:35 | PC.ADMIT ---
Patient is a 55 year old male who was referred to [facility] by his psychiatric prescriber secondary to severe anxiety and depression. Patient is taking a leave of absence from work d/t symptoms. Patient works at [employer] as a Jip[employer]. 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 Patient stated things in the nursing home has changed over the years. Thinks work environment may be contributing to his anxiety. Patient also mentioned that a family member committed suicide a month ago. Patient is alert and oriented x4. He is calm and cooperative. He presented with depressed mood and anxious affect. He denied SI, no HI. He was given a copy of his safety plan if needed. Medications updated with patient and patients pharmacy. Patient reports he has not started PRN Trazodone that was prescribed as he feels he takes too many medications. Patient reports poor sleep. Medication education provided.
--- NOTE | 2025-02-26 16:27 | HO.PHP ---
Client's case was opened and reviewed in teams.
--- NOTE | 2025-02-27 23:50 | P.HPPSP_ITS ---
HPI Date of Service: 02/26/25 Chief Complaint: anxiety Sources of Information: patient interviewed, chart reviewed and crisis/core team assessment reviewed HPI Narrative: This is the first PHP admission for this 55 yo male with history of depression, anxiety who was referred by Monserrat Jack APRN who took over medication management in 11/2024 from his PCP who retired. He notes that since 2018 he has been struggling with foggy head, forgetfulness, balance problems, I'm tired a lot, crippling anxiety... it progressively got worse up to the point (this year) I had to leave work . He is out on FMLA. He reports having been slightly anemic around July and has had to try making some improvements in his diet, increase protein intake. He describes issues with focus and attention regulation, and say his therapist has been inquiring about this as well, although notes he was in fact a good student and did not struggle with focus and attention. He does however reports a long history of procrastination. He was initially on Lexapro and Prozac, He has now been 2 months on the Pristiq was increased last month to 50 mg. Past Psychiatric History: outpatient treatment with meds on and off since 2017; went to marriage counseling in 2007 before divorce . No IPLOC. No prior PHP, respite, detox/rehab admissions SA: denies SIB: denies Aggression or antisocial behaviors: denies Denies legal history Pertinent developmental hx: Previous diagnoses: Psychiatrist: Diana Jack Therapist: Demetria PCP: Shaneka Rodriguez Previous trials: CURRENT MEDICATIONS: Wellbutrin XL 150 mg qam buspirone 5 mg BID Pristiq ER 50 mg qd atorvastatin 20 mg qhs ASA 81 mg qd [facility] Medical History (Updated 03/05/25 @ 09:10 by Parisa Ziegler MD) Tinnitus History of concussion Hypogonadism male Chronic back pain Low testosterone Back pain Numerous moles Anxiety disorder Erectile dysfunction Anxiety Allergic rhinitis Headache Depression Thoracic degenerative disc disease Chronic low back pain Anemia Varicose vein of leg Bilateral carotid artery stenosis Vertigo Obstructive sleep apnea on CPAP Hyperlipidemia IBS (irritable bowel syndrome) Surgical History (Updated 02/26/25 @ 10:44 by Hortensia Ordoñez RN) H/O hand surgery History of colonoscopy (~09/17/21) Social History: lives with one daughter who is in college. grew up in [place] with both M& F and a brother 1 yr older. Describes self as average student. graduated from . 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 Trauma History: none known Diagnostics Vital Signs (24Hr): BMI result Body Mass Index 25.9 Meds/Allergies Meds Home Medications ?Medication ?Instructions ?Recorded ?Confirmed ?Type aspirin 81 mg tablet,delayed 81 mg PO DAILY 07/23/24 0 02/26/25 History release (Adult Aspirin Regimen) sildenafil 100 mg tablet 100 mg PO DAILY PRN Sexual A ctivity 02/26/25 02/26/25 History Allergies Allergies Allergy/AdvReac Type Severity Reaction Status Date / Time No Known Allergies Allergy Verified 01/19/25 22:29 Mental Status Exam Mental Status Exam Narrative: Alert, oriented, in no acute distress. Calm, cooperative, engaged. No psychomotor agitation or neurovegetative retardation. Eye contact maintained. Mood anxious, depressed, affect variable, brighter than expected. Speech normal. Thought process linear, coherent. Thought content related to stressors, transient hopelessness, denies SI or HI. No paranoia or delusional content elicited. No evidence of psychosis. Insight and judgment - fair but adequate. Assessment & Plan Assessment & Plan (1) NEDA (generalized anxiety disorder): Status: Acute Code(s): F41.1 - Generalized anxiety disorder (2) Major depressive disorder, recurrent, moderate: Status: Acute Code(s): F33.1 - Major depressive disorder, recurrent, moderate (3) Cannabis use disorder: Status: Acute Code(s): F12.90 - Cannabis use, unspecified, uncomplicated Plan Admit to PHP VS reviewed: afebrile, BP 110/72;?68 bpm discuss titrating buspirone toward 10 mg TID may consider titrating doses of Wellbutrin XL 300 mg (to target depression, cognitive sx) continue regular medications for now Routine lab work as indicated EKG, routine for baseline QTc for medication considerations as indicated UDS as indicated MassPat reviewed Continue to monitor as per protocol Patient educated on: diagnosis, medication risk/benefits and substance abuse Informed Consent: understands Reason for continued partial hosp. stay Substantial Risk for: inability to function and med/psych decompensation Certification I certify that partial hospital treatment is medically necessary due to the symptoms and problems resulting from the patient's mental illness and the failure to treat the patient at the partial hospital level of care would likely result in the patient requiring inpatient psychiatric care which could not be prevented at a less intensive level of care. Time Spent With Patient Time: Total time managing care of this patient today __60__ minutes.
--- NOTE | 2025-03-04 13:27 | P.PNPSP_ITS ---
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 pt reports hes starting to feel a little better. Says for past week he has been waking up in a panic, however for the past 3 days no panic at all and he has been waking up feeling better. Discussed medications and patient says he would like to keep medication regimen, at current doses for now and see how things go Mental Status Exam Mental Status Exam Narrative: Pt is alert and oriented; behavior is cooperative, friendly and calm; patient is not in distress; dressed in casual attire with adequate hygiene and grooming; mood is described as better and affect congruent; eye contact appropriate; Speech is verbose but normal rate, volume and prosody and not pressured; no psychomotor agitation/retardation present; thought process is organized and goal directed; Thought content is on tx; otherwise pertinent to relevant topics and without any delusional content, paranoid ideations or grandiosity; denies any SI/HI. Denies AVH and there is no evidence of perceptual disturbance. Patients insight and judgment appear intact. 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 pt reports hes starting to feel a little better. Says for past week he has been waking up in a panic, however for the past 3 days no panic at all and he has been waking up feeling better. Discussed medications and patient says he would like to keep medication regimen, at current doses for now and see how things go. Patient feels that partial hospital program is helping him with coping skills Plan: Continue current regimen Patient educated on: diagnosis, medication risk/benefits and therapeutic strategies Informed Consent: understands Reason for contiued partial hosp. stay Substantial Risk for: rapid decompensation and med/psych decompensation Certification I certify that partial hospital treatment is medically necessary due to the symptoms and problems resulting from the patient's mental illness and the failure to treat the patient at the partial hospital level of care would likely result in the patient requiring inpatient psychiatric care which could not be prevented at a less intensive level of care. Total time managing care of this patient today ____ minutes. Discharge Plan Discharge Attending provider: Parisa Ziegler Medications: Continued atorvastatin 20 mg tablet 20 mg PO BEDTIME Qty: 90 1RF aspirin [Adult Aspirin Regimen] 81 mg tablet,delayed release (DR/EC) 81 mg PO DAILY trazodone 50 mg tablet 50 mg PO BEDTIME PRN (Reason: sleep) Qty: 30 1RF Patient Comments: Patient has not started this medication. buspirone 5 mg tablet 5 mg PO BID Qty: 60 2RF bupropion HCl [Wellbutrin XL] 150 mg tablet extended release 24 hr 150 mg PO QAM Qty: 30 0RF desvenlafaxine 50 mg tablet extended release 24 hr 50 mg PO DAILY Qty: 30 1RF No Action sildenafil 100 mg tablet 100 mg PO DAILY PRN (Reason: Sexual Activity) Rx Instructions: administer 30 minutes to 4 hours before activity Print Language: Malay
--- NOTE | 2025-03-04 15:35 | PC.NURSE ---
Dr. Casillas reviewed patient lab results including GAP 10, WBC 4.0, HCT 41.9, Lymph Pct Auto, 18.5, Lymph Abs auto 0.7. Reviewed EKG NSR Incomplete RBBB. No new orders.
--- NOTE | 2025-03-11 20:01 | P.PNPSP_ITS ---
Subjective Subjective Date of Service: 03/10/25 Reason For Visit: anxiety Interim History: Patient seen for follow-up, anticipating discharge at the end of program today.? still dealing with anxiety overall patient relays having a positive experience at the program. ANxiety persists. He is on Buspar 5 mg BID, and is open to increasing dose toward TID and then 10 mg TID. He must return to work on 03/20 and will be following up with his OP provider on 03/24. Reports no acute issues or concerns. Medication compliant, medications well- tolerated. Denies any adverse effects.? Mood is stable.? Denies any hopelessness or SI. Denies thoughts of harming self or others at this time. Denies any aggressive ideation or HI. Denies any paranoia or AH or VH. Sleep, appetite, energy stable. Medication Compliance: Yes Side effects from medications: No Attending Groups: Yes Review of Systems Acute medical concerns: No Mental Status Exam Mental Status Exam Narrative: Alert, oriented, in no acute distress. Calm, cooperative. Mood stable, affect appropriate. Speech normal. Thought process linear, coherent, more goal- directed. Thought content related to stressors, future-oriented, denies any helplessness, hopelessness or SI.? No aggressive ideation or HI. No paranoia or delusional content elicited. No evidence of psychosis. Insight and judgment fair-good. Diagnostics Vital Signs (24Hr): BMI result Body Mass Index 25.9 Assessment & Plan Assessment & Plan (1) Major depressive disorder, recurrent, moderate: Status: Acute Code(s): F33.1 - Major depressive disorder, recurrent, moderate (2) NEDA (generalized anxiety disorder): Status: Acute Code(s): F41.1 - Generalized anxiety disorder (3) Cannabis use disorder: Status: Acute Code(s): F12.90 - Cannabis use, unspecified, uncomplicated Plan [facility]charge from [facility] titrate Buspar to 10 mg BID-TID Continue other regular medications? Refills sent to pharmacy Will defer further medication management to outpatient provider *Safety plan reviewed *Discharge diagnoses, treatment course, discharge plan have been reviewed with patient (including medication regime, medication management, potential side effects) as well as treatment rationale were also revisited *Discharge paperwork signed and given to patient, copy sent for scanning to [facility] Patient educated on: diagnosis, medication risk/benefits and substance abuse Informed Consent: understands Reason for contiued partial hosp. stay Substantial Risk for: stable for discharge Certification I certify that partial hospital treatment is medically necessary due to the symptoms and problems resulting from the patient's mental illness and the failure to treat the patient at the partial hospital level of care would likely result in the patient requiring inpatient psychiatric care which could not be prevented at a less intensive level of care. Total time managing care of this patient today ___30_ minutes. Discharge Plan Discharge Attending provider: Parisa Ziegler Medications: New buspirone 10 mg tablet 10 mg PO TID Qty: 45 0RF Continued atorvastatin 20 mg tablet 20 mg PO BEDTIME Qty: 90 1RF aspirin [Adult Aspirin Regimen] 81 mg tablet,delayed release (DR/EC) 81 mg PO DAILY trazodone 50 mg tablet 50 mg PO BEDTIME PRN (Reason: sleep) Qty: 30 1RF Patient Comments: Patient has not started this medication. buspirone 5 mg tablet 5 mg PO BID Qty: 60 2RF desvenlafaxine 50 mg tablet extended release 24 hr 50 mg PO DAILY Qty: 30 1RF Discontinued bupropion HCl 150 mg tablet extended release 24 hr 150 mg PO QAM Qty: 30 1RF No Action bupropion HCl 150 mg tablet extended release 24 hr 150 mg PO QAM Qty: 90 0RF sildenafil 100 mg tablet 100 mg PO DAILY PRN (Reason: Sexual Activity) Rx Instructions: administer 30 minutes to 4 hours before activity Stand Alone Forms: Patient Portal Discharge page Patient Education: Anxiety (ED), Anxiety (GEN) Print Language: Thai
== END 2025-03-11 23:59 | disposition home or self-care (01) ==
LOC: HO.PHPA 12:15
PROVIDERS: Visit Provider Psychiatry & Neurology Psychiatry
DX: F41.1 Generalized anxiety disorder (principal); F33.1 Major depressive disorder, recurrent, moderate; F12.90 Cannabis use, unspecified, uncomplicated; Z79.899 Other long term (current) drug therapy
CPT/HCPCS: 90791; 90853

== ENCOUNTER 2025-03-24 14:44 | Outpatient (AMB) | payer OTHER, SELFPAY ==
--- NOTE | 2025-03-24 15:09 | MHC.OFFVISPS ---
Intake Intake Visit Reasons: follow up Grants Director Required: No Allergies No Known Allergies Allergy (Verified 03/27/25 11:55) Medication List - Last Reconciled 03/24/25 by Monserrat Jack APRN aspirin (Adult Aspirin Regimen) 81 mg PO DAILY atorvastatin 20 mg PO BEDTIME bupropion HCl XL 150 mg PO QAM buspirone 10 mg PO TID buspirone 5 mg PO BID desvenlafaxine ER 50 mg PO DAILY sildenafil 100 mg PO DAILY PRN trazodone 50 mg PO BEDTIME PRN HPI- Psychiatric Chief Complaint: follow up HPI Narrative: pt seen for follow up re:anxiety and depression. pt reports he completed PHP program. He found it helpful; He reports feeling better overall. He has returned to work and is coping well. His PHQ9=10 and GAD7= 5. He is feeling more hopeful. He is spending time with family. He is planning to resume activities that he finds enjoyable and that he let go due to loss of interest, He is compliant with medications. Past Psychiatric History: outpatient treatment with meds on and off since 2018; went to marriage counseling in 2007 before divorce . No IPLOC. No prior PHP, respite, detox/rehab admissions SA: denies SIB: denies Aggression or antisocial behaviors: denies Denies legal history Pertinent developmental hx: Previous diagnoses: Psychiatrist: Diana Jack Therapist: Demetria PCP: Shaneka Rodriguez Previous trials: CURRENT MEDICATIONS: Wellbutrin XL 150 mg qam buspirone 5 mg BID Pristiq ER 50 mg qd atorvastatin 20 mg qhs ASA 81 mg qd Subjective Subjective Subjective Medication Compliance: Yes Side effects from medications: No Review of Systems Medical Review of Systems: unchanged Mental Status Exam Mental Status Exam Narrative: Alert, oriented, in no acute distress. Calm, cooperative. Mood stable, affect appropriate. Speech normal. Thought process linear, coherent, more goal-directed. Thought content related to stressors, future-oriented, denies any helplessness, hopelessness or SI.? No aggressive ideation or HI. No paranoia or delusional content elicited. No evidence of psychosis. Insight and judgment fair-good. Assessment and Plan Assessment & Plan (1) Major depressive disorder, recurrent, moderate: Status: Acute Code(s): F33.1 - Major depressive disorder, recurrent, moderate (2) NEDA (generalized anxiety disorder): Status: Acute Code(s): F41.1 - Generalized anxiety disorder Plan Continue pristiq to 50mg daily continue wellbutrin xl 150mg qam continue buspar 5 mg bid trazodone for sleep prn Pt will continue medications as is. He will continue therapy Refer back to PCP Medications: Refilled desvenlafaxine ER 50 mg PO DAILY 90 tabs 1RF buspirone 10 mg PO TID 135 tabs 2RF bupropion HCl XL 150 mg PO QAM 90 tabs 0RF Discontinued buspirone Discontinued Reason: Doctor's Order 5 mg PO BID 60 tabs 2RF Counseling and coordination of Care Pt. Self Management counseling: Exercise, Maintenance-social rhythm, Med illness tx adherence, Mod caffeine/ETOH intake, Nutrition education and improvement, Sleep hygiene, Behavior activation, General coping skills and Problem solving Medication management counseling: Effectiveness, Side effects, Dosing range, Duration, Drug interaction and Adherence Diagnosis and Prognosis Counseling: Accuracy of diagnosis, Prognosis over time, Impact of diagnosis on life functions, Impact of family relationship, Problematic behaviors secondary to diagnosis and Adequacy of current interventions Details: I spent 35 minutes reviewing the record, seeing the patient and documenting in the medical record. Counseling provided to the patient/caregiver as outlined below. Addressed patient/caregiver concerns regarding current medication regime including effective adherence. Addressed patient/caregiver concerns regarding diagnosis and prognosis including accuracy of diagnosis, prognosis over time, impact of diagnosis. Addressed patient/caregiver concerns regarding impact of recent stressors. [facility] Medical History (Updated 03/27/25 @ 11:56 by Shaenka Benavides PA-C) Sinusitis Tinnitus History of concussion Hypogonadism male Chronic back pain Low testosterone Back pain Numerous moles Anxiety disorder Erectile dysfunction Anxiety Allergic rhinitis Headache Depression Thoracic degenerative disc disease Chronic low back pain Anemia Varicose vein of leg Bilateral carotid artery stenosis Vertigo Obstructive sleep apnea on CPAP Hyperlipidemia IBS (irritable bowel syndrome) Surgical History H/O hand surgery History of colonoscopy (~09/17/21) Family History Father Back problem Cancer Mother Knee problem Social History Household Members: Other Household Members Other:: Youngest daughter Housing: House Alcohol intake: current Alcohol intake frequency: a few times a week Patient Tobacco Use Status: Former Tobacco user Tobacco use type: Cigarette service: No Current occupational status: employed Cognitive needs: No Hearing needs: No Vision needs: Yes (rx glasses) Social History: lives with one daughter who is in college. grew up in [place] with both M& F and a brother 1 yr older. Describes self as average student. graduated from . 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 Substance History: no hx substance abuse; no tobacco, etoh 2 drinks per week, occasional THC edible 2-4 times a year. Trauma History: none known Coding Level of Care Code Est Pt Level 4 (36687) Diagnoses Major depressive disorder, recurrent, moderate F33.1 NEDA (generalized anxiety disorder) F41.1
== END 2025-03-24 15:37 | disposition home or self-care (01) ==
LOC: HO.HOP 14:44
PROVIDERS: PCP Physician Assistant Medical; Visit Provider Clinical Nurse Specialist Psychiatric/Mental Health
DX: F33.1 Major depressive disorder, recurrent, moderate (principal); F41.1 Generalized anxiety disorder
CPT/HCPCS: 99214

== ENCOUNTER 2025-03-27 11:45 | Outpatient (AMB) | payer OTHER, SELFPAY ==
--- NOTE | 2025-03-27 11:47 | A.OFFPC_ITS ---
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: No Accompanied by: Self / Same As Patient Allergies No Known Allergies Allergy (Verified 03/27/25 11:55) Medication List - Last Reconciled 03/27/25 by Shaneka Benavides PA-C amoxicillin-pot clavulanate 875-125 mg 1 tab PO BID 10 days aspirin (Adult Aspirin Regimen) 81 mg PO DAILY atorvastatin 20 mg PO BEDTIME bupropion HCl XL 150 mg PO QAM buspirone 10 mg PO TID desvenlafaxine ER 50 mg PO DAILY fexofenadine-pseudoephedrine 60-120 mg ER (Idalia-D 12 Hour) 1 tab PO Q12H PRN sildenafil 100 mg PO DAILY PRN trazodone 50 mg PO BEDTIME Tobacco use date assessed: 03/27/25 Dental Screening Dental Screen Date: 03/27/25 HPI Telehealth HPI Details The patient is a 55-year-old male presenting with symptoms suggestive of sinusitis and a history of anxiety disorder. The patient reports the onset of a cold on Sunday, which he believes has progressed to a sinus infection. He has been experiencing a persistent headache for the past three days, which has been severe enough to prevent him from attending work. He has attempted self-care measures such as using a neti pot and taking [id number]-[id number] medications, but these have not provided relief. The patient denies experiencing any fever. He reports significant nasal congestion, primarily affecting his frontal sinuses, and describes his face as being stuffed up most of the day. The patient has a history of anxiety disorder, which has previously resulted in a two-month absence from work. He has recently returned to work but had to take personal time due to his current illness. [facility] Medical History (Updated 03/27/25 @ 11:56 by Shaneka Benavides PA-C) Sinusitis Tinnitus History of concussion Hypogonadism male Chronic back pain Low testosterone Back pain Numerous moles Anxiety disorder Erectile dysfunction Anxiety Allergic rhinitis Headache Depression Thoracic degenerative disc disease Chronic low back pain Anemia Varicose vein of leg Bilateral carotid artery stenosis Vertigo Obstructive sleep apnea on CPAP Hyperlipidemia IBS (irritable bowel syndrome) Surgical History H/O hand surgery History of colonoscopy (~09/17/21) Family History Father Back problem Cancer Mother Knee problem Social History Household Members: Other Household Members Other:: Youngest daughter Housing: House Alcohol intake: current Alcohol intake frequency: a few times a week Patient Tobacco Use Status: Former Tobacco user Tobacco use type: Cigarette service: No Current occupational status: employed Cognitive needs: No Hearing needs: No Vision needs: Yes (rx glasses) Questionnaire PHQ-9 Over the last 2 weeks, how often have you been bothered by any of the following problems? 1. Little interest or pleasure in doing things: several days 2. Feeling down, depressed, or hopeless: several days 3. Trouble falling or staying asleep, or sleeping too much: several days 4. Feeling tired or having little energy: nearly every day 5. Poor appetite or overeating: not at all 6. Feeling bad about yourself - or that you are a failure or have let yourself or your family down: not at all 7. Trouble concentrating on things, such as reading the newspaper or watching television: several days 8. Moving or speaking so slowly that other people could have noticed. Or the opposite - being so fidgety or restless that you have been moving around a lot more than usual: not at all 9. Thoughts that you would be better off or of hurting yourself in some way: not at all Total score: 7 Depression Screening Interpretation: Positive Depression Screening Follow-up: Existing condition Depression Screening Done: Yes 31136 - PHQ-9 Billing: Yes Source: Developed by Drs. Fabián Mccoy, Ele Avendaño, Nathanael Posada and colleagues, with an educational roberto from [employer]. Thrive Questionnaire Date Thrive assessed: 03/27/25 I am a: Patient What is your living situation today?: I have a steady place to live Within the past 12 months, did the food you bought not last and you didn't have the money to get more?: Never true Within the past 12 months, did you worry whether your food would run out before you got money to buy more?: Never true Do you have trouble paying for medicines?: No Do you have trouble getting transportation to medical appointments?: No Do you have trouble paying your heating and electricity bill?: No Do you have trouble taking care of your child, family member or friend?: No Do you have trouble with day-to-day activities such as bathing, preparing meals, shopping, managing finances, etc.?: No Are you currently unemployed and looking for a job?: No Are you interested in more education?: No Please select the resources that you would like help with: None THRIVE Score: 0 NEDA-7 AMB Questionnaire NEDA-7 Date NEDA - 7 assessed: 03/27/25 Feeling nervous, anxious, or on edge: 3 = Nearly every day Not being able to stop or control worryin = Several days Worrying too much about different things: 1 = Several days Trouble relaxin = Not at all Being so restless that it is hard to sit still: 0 = Not at all Becoming easily annoyed or irritable: 0 = Not at all Feeling afraid as if something awful might happen: 0 = Not at all Total NEDA-7 score (0-4 normal; 5-9 mild; 10-14 moderate; 15-21 severe): 5 Source: Developed by Drs. Fabián Mccoy, Ele Avendaño, Nathanael Posada and colleagues, with an educational roberto from [employer]. NEDA-7 Assessment Billing NEDA-7 Assessment Tool: NEDA-7 Assessment 19674 Review of Systems Const Details: - General: Denies fever. - Head: Reports persistent headache for three days. - Respiratory: Denies cough. - Neurological: Reports severe headache preventing work attendance. - Psychiatric: History of anxiety disorder. All systems reviewed & are unremarkable except as noted in HPI and below Physical exam (Primary Care) Tobacco/Smoking Status: Tobacco use Status Tobacco use date assessed 03/27/25 03/27/25 11:48 Patient Tobacco Use Status Former Tobacco user 03/27/25 11:48 Tobacco use type Cigarette 03/27/25 11:48 PHQ-9: PHQ-9 Score PHQ-9: Total score 7 03/27/25 11:48 Depression Screening Interpretation: Positive Depression Screening Follow-up: Existing condition Thrive Assessment: Date of Thrive Assessment Date Thrive assessed 03/27/25 03/27/25 11:48 Telehealth Telehealth Telehealth Platform: Telephone Location of provider rendering services: practice address Location of patient: address on file Patient Identification confirmed using: Name, : Yes Telehealth method: voice only Patient verbally consented to treatment: Yes Patient verbally consented to billing insurance company: Yes Patient informed of any privacy concerns related to visit: Yes Minutes spent on Phone/Video with Pt.: 15 Coding Level of Care Code Tele Est Pt Level 4 (30780) Complex EM visit Add On G2211 Diagnoses Sinusitis J32.9 Anxiety F41.9 Additional Codes NEDA-7 Assessment Billing - NEDA-7 Assessment Tool: NEDA-7 Assessment 04339 ([id number]) PHQ-9 - 26144 - PHQ-9 Billing: Yes ([id number]) Assessment & Plan Assessment & Plan (1) Sinusitis: Code(s): J32.9 - Chronic sinusitis, unspecified Category: Medical Plan: The patient will be prescribed Augmentin to be taken twice daily for 10 days to address the sinus infection. Additionally, Idalia will be recommended every 12 hours to alleviate nasal congestion. (2) Anxiety: Code(s): F41.9 - Anxiety disorder, unspecified Category: Medical Plan: The patient has a history of anxiety disorder, which has previously led to a two-month absence from work. No specific treatment plan for anxiety was discussed during this visit. Plan Plan Patient was informed and verbally consented to the use of an ambient scribe for clinic note documentation during this visit. 1. Sinusitis The patient will be prescribed Augmentin to be taken twice daily for 10 days to address the sinus infection. Additionally, Idalia will be recommended every 12 hours to alleviate nasal congestion. 2. Anxiety Disorder The patient has a history of anxiety disorder, which has previously led to a two-month absence from work. No specific treatment plan for anxiety was discussed during this visit. During the consultation, I discussed with the patient the plan to treat his sinusitis with Augmentin and Idalia to manage symptoms of nasal congestion. We also reviewed his recent return to work and the impact of his anxiety disorder on his ability to maintain regular attendance. Patient Instructions: - Take Augmentin twice daily for 10 days. - Take Idalia every 12 hours to help with nasal congestion. - Monitor symptoms and seek medical attention if they worsen or do not improve.
== END 2025-03-27 14:13 | disposition home or self-care (01) ==
LOC: HO.HMCSH 11:45
PROVIDERS: PCP Physician Assistant Medical; Visit Provider Physician Assistant Medical
DX: J32.9 Chronic sinusitis, unspecified (principal); F41.9 Anxiety disorder, unspecified

== ENCOUNTER → 2025-03-27 11:45 | Outpatient (BNVA) | payer OTHER, SELFPAY | PROVIDERS: PCP Physician Assistant Medical; Visit Provider Physician Assistant Medical | DX: G47.33 Obstructive sleep apnea (adult) (pediatric) (principal); F41.9 Anxiety disorder, unspecified; J32.9 Chronic sinusitis, unspecified; Z99.89 Dependence on other enabling machines and devices | CPT/HCPCS: 96127 ==

== ENCOUNTER 2025-04-13 07:09 | Outpatient (REF) | payer OTHER, SELFPAY ==
[2025-04-14 03:23] LABS: Follicle Stimulating Hormone 8.8 mIU/mL (1.4-12.8)
[2025-04-19 17:43] LABS: Testosterone, Free 64.4 pg/mL (35.0-155.0)
[2025-04-27 01:13] LABS: Estradiol Free 0.43 pg/mL; Estradiol, Ultrasensitive 18 pg/mL (< OR = 29)
== END 2025-04-13 07:10 | disposition home or self-care (01) ==
LOC: HO.HMGCLDS 07:09
PROVIDERS: PCP Physician Assistant Medical; Visit Provider Nurse Practitioner Family
DX: R79.89 Other specified abnormal findings of blood chemistry (principal)
CPT/HCPCS: 36415; 82670; 82681; 83001; 83002; 84146; 84270; 84402; 84403

== ENCOUNTER 2025-04-23 15:49 | Outpatient (AMB) | payer OTHER, SELFPAY ==
--- NOTE | 2025-04-23 15:55 | MHC.OFFVIS ---
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 Cheung. He has a past medical history of anxiety, chronic back pain, allergic rhinitis, headaches, depression, anemia, vertigo, obstructive sleep apnea on CPAP, hyperlipidemia, and irritable bowel syndrome. He presents to the office today for follow-up. Of note, patient was seen approximately 3 months ago as a new patient for hypogonadism at which time labs were ordered for further assessment evaluation. These results were reviewed and communicated with the patient today as noted and trended below: PSA: 07/05 0.4 Testosterone: 11/02 248, 05/05 364 Free testosterone: 05/05 64.4 SHB Prolactin: 7.6 LH: 3.1 FSH:8.8 Estradiol: pending He reports since his initial visit here he was admitted inpatient for his ongoing issues with depression and anxiety. He reports significant improvement in how he had been feeling. We did discuss slight increase in testosterone levels. We did discussed further treatment options to include trial of low-dose Cialis verses stimulation testing verses surveillance monitoring. Risks and benefits of these interventions were discussed. He does discuss a previous history of a hydrocele drainage in the past and believes it is reoccurring. In assessment of the patient today the penis is circumcised no hydroceles palpated however semi firm right epididymal cyst palpated otherwise no open areas, drainage, and or lesions noted. We did discuss obtaining scrotal imaging for further assessment evaluation. He otherwise denies any bothersome urinary issues. He denies urinary urgency, urinary frequency, incontinence, nocturia, hematuria, dysuria, foul smelling urine, changes to urinary stream, flank pain, fever, and or chills. He is happy with his current voiding parameters. In office urinalysis results reviewed with the patient today. All questions were answered. We discussed importance of lifestyle modifications. He otherwise offers no other issues or concerns at this time. [facility] Medical History Sinusitis Tinnitus History of concussion Hypogonadism male Chronic back pain Low testosterone Back pain Numerous moles Anxiety disorder Erectile dysfunction Anxiety Allergic rhinitis Headache Depression Thoracic degenerative disc disease Chronic low back pain Anemia Varicose vein of leg Bilateral carotid artery stenosis Vertigo Obstructive sleep apnea on CPAP Hyperlipidemia IBS (irritable bowel syndrome) Surgical History H/O hand surgery History of colonoscopy (~09/17/21) Family History Father Back problem Cancer Mother Knee problem Social History Household Members: Other Household Members Other:: Youngest daughter Housing: House Alcohol intake: current Alcohol intake frequency: a few times a week Patient Tobacco Use Status: Former Tobacco user Tobacco use type: Cigarette service: No Current occupational status: employed Cognitive needs: No Hearing needs: No Vision needs: Yes (rx glasses) Review of Systems Const All systems reviewed & are unremarkable except as noted in HPI and below Physical Exam Const General: cooperative, healthy appearing, comfortable, no acute distress, well developed, alert and awake Orientation/consciousness: patient oriented x3 Limitations: no limitations HEENT Head: Yes normal to inspection, Yes normocephalic and Yes atraumatic Ears: hearing grossly normal bilaterally Eyes General: appearance normal, both eyes and all related structures Neck Neck: Yes normal visual inspection and Yes trachea midline Chest Chest palpation & inspection: normal inspection of the chest Resp Effort & Inspection: normal respiratory effort and able to speak in complete sentences Cardio Rate: regular rate GI Inspection: Yes normal to inspection Other: as per HPI General: Yes no CVA tenderness Back/Spine/Pelvis Back: no CVA tenderness Skin General skin exam: no rashes or lesions noted Neuro General: patient oriented x3 Extrem General: Yes normal to inspection Psych Appearance: grossly normal and well kempt Mental Status: mental status grossly normal Speech and movement: Normal speech and movement present and Clear speech present Affect: normal affect Attitude: cooperative Thought process: Normal thought process present Thought content: Normal thought content present Insight: Fair insight present (Psych) Judgement: Fair judgement present (Psych) Results AMB Urinalysis, Automated UA Leukoctes 0 Adria/uL Last Edit by FARZANA Costello on 04/23/25 16:10 UA Nitrite Negative Last Edit by Ni Abdullahi [facility] on 04/23/25 16:10 UA Urobilinogen 0.2 mg/dL Last Edit by Ni Abdullahi [facility] on 04/23/25 16:10 UA Protein 15 mg/dL Last Edit by Ni Abdullahi [facility] on 04/23/25 16:10 UA pH 6.0 Last Edit by Ni Abdullahi [facility] on 04/23/25 16:10 UA Blood 10 Bobo/uL Last Edit by Ni Abdullahi [facility] on 04/23/25 16:10 UA Specific [place] 1.030 Last Edit by Ni Abdullahi [facility] on 04/23/25 16:10 UA Ketone Negative Last Edit by Ni Abdullahi [facility] on 04/23/25 16:10 UA Bilirubin 0 mg/dL Last Edit by Ni Abdullahi [facility] on 04/23/25 16:10 UA Glucose 0 mg/dL Last Edit by Ni Abdullahi [facility] on 04/23/25 16:10 Results Reviewed Results Reviewed: Laboratory Last Values Urine pH (Auto) 6.0 04/23/25 16:10 Specific [place] (Auto) 1.030 04/23/25 16:10 Urine Protein (Auto) 15 mg/dL 04/23/25 16:10 Glucose (UA)(Auto) 0 mg/dL 04/23/25 16:10 Urine Ketones (Auto) Negative 04/23/25 16:10 Urine Blood (Auto) 10 Bobo/uL 04/23/25 16:10 Urine Nitrite (Auto) Negative 04/23/25 16:10 Urine Bilirubin (Auto) 0 mg/dL 04/23/25 16:10 Urine Urobilinogen (Auto) 0.2 mg/dL 04/23/25 16:10 Leukocyte Esterase (Auto) 0 Adria/uL 04/23/25 16:10 Assessment & Plan Assessment & Plan (1) Low testosterone: Code(s): R79.89 - Other specified abnormal findings of blood chemistry Category: Medical (2) Hypogonadism male: Code(s): E29.1 - Testicular hypofunction Category: Medical (3) Epididymal cyst: Code(s): N50.3 - Cyst of epididymis Category: Medical (4) Erectile dysfunction: Code(s): N52.9 - Male erectile dysfunction, unspecified Category: Medical Plan Most recent hypogonadism labs were reviewed with the patient today; as noted above. We did discussed obtaining scrotal ultrasound for further assessment evaluation. We did discussed further treatment options and risks and benefits of these treatment options. All questions were answered. He currently denies any bothersome urinary issues or concerns. He reports be happy with current voiding parameters. All questions were answered. Follow-up in 3 months with imaging and labs; or sooner with any issues, concerns, and or questions. Orders: Orders Urine Cytology Today ARUN Montes-VAMSI R31.29 - Other microscopic hematuria AMB Urinalysis Automated Today ARUN Montes-BC Z13.9 - Encounter for screening, unspecified US scrotum Today ARUN Montes-VAMSI N43.3 - Hydrocele, unspecified Medications: Changed From buspirone 10 mg PO TID 90 tabs 3RF To buspirone 5 mg PO TID Monserrat Jack APRN Patient Instructions: The patient had an opportunity to ask questions regarding the treatment plan. All questions were answered. Physical exam, labs, and imaging were discussed and reviewed in detail. As well as risks, benefits, and discussion of treatment choices. No major barriers to understanding were identified. The patient expressed understanding and agreement with the above treatment plan. The patient was made aware they should contact our office by phone for worsening of their current condition, the appearance of new symptoms, or with any questions or concerns. Compliance is encouraged with any medications and follow up testing that is ordered. It is a privilege to be allowed the opportunity to participate in? your urological care.? Again, if you have any questions or concerns If you have any questions or concerns please do not hesitate to contact me. The office is [phone]. This note is constructed using voice recognition software. While every effort has been made to ensure accuracy bookkeeping service sales agent errors may have been included. Yours sincerely, ASHLEY Montes Coding Level of Care Code Est Pt Level 4 (13545) Complex EM visit Add On G2211 Diagnoses Low testosterone R79.89 Hypogonadism male E29.1 Epididymal cyst N50.3 Erectile dysfunction N52.9 Time Spent (min) 40
== END 2025-04-23 16:44 | disposition home or self-care (01) ==
LOC: HO.HUSH 15:50
PROVIDERS: PCP Internal Medicine; Visit Provider Nurse Practitioner Family
DX: R79.89 Other specified abnormal findings of blood chemistry (principal); E29.1 Testicular hypofunction; N50.3 Cyst of epididymis; N52.9 Male erectile dysfunction, unspecified; Z13.9 Encounter for screening, unspecified
CPT/HCPCS: 99214; G2211

== ENCOUNTER 2025-04-23 15:49 | Outpatient (REF) | payer OTHER, SELFPAY | END 2025-04-23 15:50 | disposition home or self-care (01) | LOC: HO.LAB 15:49 | PROVIDERS: PCP Internal Medicine; Visit Provider Nurse Practitioner Family | DX: E29.1 Testicular hypofunction (principal); N52.9 Male erectile dysfunction, unspecified; N50.3 Cyst of epididymis; R79.89 Other specified abnormal findings of blood chemistry; R31.29 Other microscopic hematuria; Z79.899 Other long term (current) drug therapy | CPT/HCPCS: 81003; 88112 ==